=== PATIENT | female | born 1935 | race Caucasian/White ===

== ENCOUNTER → 2016-09-08 | Outpatient (CLI) | payer OTHER, MEDICAID | LOC: SBRMNEURO 20:00 | PROVIDERS: ATTEND Psychiatry & Neurology Sleep Medicine | DX: G47.39 Other sleep apnea (principal) ==

== ENCOUNTER → 2016-12-28 | Outpatient (CLI) | payer OTHER, MEDICAID | LOC: FCPNEURO 21:00 | PROVIDERS: ATTEND Psychiatry & Neurology Sleep Medicine | DX: G47.31 Primary central sleep apnea (principal); G47.33 Obstructive sleep apnea (adult) (pediatric) ==

== ENCOUNTER → 2018-01-12 | Outpatient (CLI) | payer OTHER, MEDICAID | LOC: BHFA 09:30 | PROVIDERS: ATTEND Internal Medicine Cardiovascular Disease | DX: R94.31 Abnormal electrocardiogram [ECG] [EKG] (principal); I11.9 Hypertensive heart disease without heart failure; I43 Cardiomyopathy in diseases classified elsewhere; R06.02 Shortness of breath ==

== ENCOUNTER → 2018-01-19 | Outpatient (CLI) | payer OTHER, MEDICAID | LOC: BHFA 13:30 | PROVIDERS: ATTEND Internal Medicine Cardiovascular Disease | DX: R06.02 Shortness of breath (principal); R55 Syncope and collapse | CPT/HCPCS: 78452; 93017; A9500; J2785 ==

== ENCOUNTER → 2018-02-02 | Outpatient (CLI) | payer OTHER, MEDICAID | LOC: BHFA 14:45 | PROVIDERS: ATTEND Internal Medicine Cardiovascular Disease | DX: R06.02 Shortness of breath (principal); R55 Syncope and collapse ==

== ENCOUNTER 2018-05-24 10:02 | Inpatient (IN) | payer OTHER, MEDICAID ==
[2018-05-24] MEDS ORDERED: NS 500 ML IV ONE (10:16)
[2018-05-24 10:28] LABS: PLATELET COUNT 215 10^3/uL (150-400)
--- NOTE | 2018-05-24 10:32 | EDPHY ---
H & P Time Seen by Provider: 05/24/18 10:14 HPI/ROS: CHIEF COMPLAINT: Syncope x2 HISTORY OF PRESENT ILLNESS: Patient is an 83-year-old female presents emergency department after having a syncopal episode x2. The patient lives in independent living. She was downstairs when she was noted to have a syncopal episode. She tried to stand up and had a 2nd syncopal episode. This was reviewed on video by EMS. Per report, the patient is normally quite with it and answers all questions appropriately. EMS states that she is slightly slower than normal. Her glucose was 124. The patient complained of neck pain. Patient had no other complaints. Patient does not initially recall the event until I tell her that she is here for syncope. She was unable to states that she remembers falling. She did not have any preceding symptoms. She denies any chest pain or shortness of breath. REVIEW OF SYSTEMS: 10 systems were reveiwed and are negative with the exception of the elements mentioned in the history of present illness. Past Medical/Surgical History: Includes sleep apnea, dementia, retinal detachment Past surgical history: Includes retinal surgery Social history: The patient lives in independent living Smoking Status: Never smoked Physical Exam: Vitals noted GENERAL: No acute distress, alert. HEENT: Eyes normal to inspection, normal pharynx, no signs of dehydration. No visible signs of trauma. NECK: Normal, supple. No spinal tenderness. RESPIRATORY: Clear to auscultation bilaterally, no rales, rhonchi or wheezing. CVS: Regular rate and rhythm, no rubs, murmurs, or gallops. ABDOMEN: Soft, nontender, nondistended, no organomegaly. BACK: Normal to inspection, no CVA tenderness. SKIN: Normal color, no rash, warm, dry. No pallor. EXTREMITIES: No bony tenderness. No visible signs of trauma. Full range of motion all extremities. No pedal edema, no calf tenderness, no Homans sign. NEURO/PSYCH: Alert and oriented, normal mood and affect, normal motor sensory exam. No obvious cranial nerve deficit. Constitutional: Initial Vital Signs Temperature (C) 35.8 C L 05/24/18 10:10 Heart Rate 55 L 05/24/18 10:10 Respiratory Rate 18 05/24/18 10:10 Blood Pressure 176/73 H 05/24/18 10:10 O2 Sat (%) 99 05/24/18 10:10 O2 Delivery Mode Nasal Cannula O2 (L/minute) 2 Allergies/Adverse Reactions: Sulfa (Sulfonamide Antibiotics) Allergy (Verified 02/27/14 16:10) Unknown DUST Allergy (Uncoded 02/27/14 16:10) Home Medications: Medication Instructions Recorded Herbals/Supplements -Info Only 1 ea PO AD 02/27/14 Niacin [Niacin 100 mg] 100 mg PO TID 02/27/14 Sertraline HCl [Zoloft 25mg (*)] 25 mg PO DAILY 02/27/14 Donepezil HCl [Aricept] 10 mg PO HS 06/12/14 Memantine HCl [Namenda Xr] 28 mg PO HS 06/12/14 Psyllium Seed [Metamucil] 1 tsp PO BID #0 powder 06/16/14 Ondansetron HCl [Zofran] 4 mg PO Q6 PRN #5 tablet 01/30/15 Medical Decision Making - Diagnostics Imaging Results: Imaging Impressions Cervical Spine CT 05/24/18 10:20 Impression: 1. No acute intracranial process or cervical spine fracture/subluxation. 2. Age-appropriate generalized cerebral line loss with sequela of chronic microvascular ischemic disease. Old lacunar infarct in the left basal ganglia. 3. Severe degenerative changes of the cervical spine with narrowing of the spinal canal. Findings and recommendations discussed with EZE RUIZ at 1120 hour, 05/24/2018. Head CT 05/24/18 10:20 Impression: 1. No acute intracranial process or cervical spine fracture/subluxation. 2. Age-appropriate generalized cerebral line loss with sequela of chronic microvascular ischemic disease. Old lacunar infarct in the left basal ganglia. 3. Severe degenerative changes of the cervical spine with narrowing of the spinal canal. Findings and recommendations discussed with EZE RUIZ at 1120 hour, 05/24/2018. ED Course/Re-evaluation: In the emergency department I met EMS on arrival. I took report from the lifts and cranes inspector. I discussed the plan with the patient. I answered all her questions. Sinus rhythm at 54. Bradycardic. Prolonged ID interval. Q-wave III, aVF CBC chemistry unremarkable. Troponin was negative. Head CT/C-spine CT: Please refer the dictated report. No acute disease noted Chest x-ray: Please refer the dictated report Discussed results with the patient. I answered all her questions. The C- collar was removed. I discussed the plan with the patient's family. I discussed case with the hospitalist service. She will be admitted for further observation. Differential Diagnosis: My differential includes but is not limited to syncope, dysrhythmia, ACS, acute CT, electrolyte abnormality, sugar abnormality, dehydration, vasovagal episode - Data Points Laboratory Results: Laboratory Results 05/24/18 10:15 05/24/18 10:15 05/24/18 05/24/18 05/24/18 11:04 10: 10:15 WBC RBC Hgb Hct MCV MCH MCHC RDW Plt Count MPV Neut % (Auto) Lymph % (Auto) [place] % (Auto) Eos % (Auto) Baso % (Auto) Nucleat RBC Rel Count Absolute Neuts (auto) Absolute Lymphs (auto) Absolute Monos (auto) Absolute Eos (auto) Absolute Basos (auto) Absolute Nucleated RBC Immature Gran % Immature Gran # PT 13.6 SEC SEC (12.0-15.0) INR 1.02 (0.83-1.16) APTT 27.7 SEC SEC (23.0-38.0) Sodium 136 mEq/L mEq/L (135-145) Potassium 4.3 mEq/L mEq/L (3.3-5.0) Chloride 100 mEq/L mEq/L (97-110) Carbon Dioxide 25 mEq/l mEq/l (22-31) Anion Gap 11 mEq/L mEq/L (6-14) BUN 10 mg/dL mg/dL (7-23) Creatinine 0.8 mg/dL mg/dL (0.6-1.0) Estimated GFR > 60 Glucose 134 mg/dL H mg/dL (70-100) Calcium 10.2 mg/dL mg/dL (8.5-10.4) POC Troponin I 0.01 ng/mL ng/mL (0.00-0.08) 05/24/18 05/24/18 10:15 10:15 WBC 6.47 10^3/uL 10^3/uL (3.80-9.50) RBC 5.41 10^6/uL H 10^6/uL (4.18-5.33) Hgb 16.4 g/dL H g/dL (12.6-16.3) Hct 46.9 % % (38.0-47.0) MCV 86.7 fL fL (81.5-99.8) MCH 30.3 pg pg (27.9-34.1) MCHC 35.0 g/dL g/dL (32.4-36.7) RDW 13.0 % % (11.5-15.2) Plt Count 215 10^3/uL 10^3/uL (150-400) MPV 9.8 fL fL (8.7-11.7) Neut % (Auto) 46.1 % % (39.3-74.2) Lymph % (Auto) 46.7 % H % (15.0-45.0) [place] % (Auto) 5.4 % % (4.5-13.0) Eos % (Auto) 0.9 % % (0.6-7.6) Baso % (Auto) 0.6 % % (0.3-1.7) Nucleat RBC Rel Count 0.0 % % (0.0-0.2) Absolute Neuts (auto) 2.98 10^3/uL 10^3/uL (1.70-6.50) Absolute Lymphs (auto) 3.02 10^3/uL H 10^3/uL (1.00-3.00) Absolute Monos (auto) 0.35 10^3/uL 10^3/uL (0.30-0.80) Absolute Eos (auto) 0.06 10^3/uL 10^3/uL (0.03-0.40) Absolute Basos (auto) 0.04 10^3/uL 10^3/uL (0.02-0.10) Absolute Nucleated RBC 0.00 10^3/uL 10^3/uL (0-0.01) Immature Gran % 0.3 % % (0.0-1.1) Immature Gran # 0.02 10^3/uL 10^3/uL (0.00-0.10) PT REJ INR REJ APTT REJ Sodium Potassium Chloride Carbon Dioxide Anion Gap BUN Creatinine Estimated GFR Glucose Calcium POC Troponin I Medications Given: Discontinued Medications Sodium Chloride (Ns) 500 mls @ 1,000 mls/hr IV EDNOW ONE PRN Reason: Protocol Stop: 05/24/18 10:45 Last Admin: 05/24/18 10:26 Dose: 500 mls Point of Care Test Results: Chemistry 05/24/18 10:18 POC Troponin I 0.01 ng/mL ng/mL (0.00-0.08) Departure - Departure Disposition: [facility] Inpatient Acute Clinical Impression: Syncope Qualifiers: Syncope type: unspecified Qualified Code(s): R55 - Syncope and collapse Condition: Good
[2018-05-24 11:34] LABS: INR 1.02 (0.83-1.16); PROTIME(PATIENT) 13.6 SEC (12.0-15.0)
--- NOTE | 2018-05-24 12:47 | ASMTCMCOM ---
CM Note CM Note Notes: Patient lives independently at [facility] in [place]. Her daughter, Irene is at the bedside and lives in [place]. Irene explains that it is difficult for her to get to the hospital on short notice and it would be helpful if patient could take a Medicaid cab or Via van home upon discharge. I have explained that these options are generally better for scheduling in advance for appointments, etc., but that we could certainly try for this. Irene states that she could make arrangements to take patient home (tomorrow) if needed and I assured her that CM would be following and communicate with her re D/C planning Date Signed: 05/24/2018 12:46 PM Electronically Signed By:Alley Acevedo RN
[2018-05-24] MEDS ORDERED: ONDANSETRON 4 MG/2 ML VIAL IVP PRN (14:23)
[2018-05-24] MEDS ORDERED: ONDANSETRON DISINTEGRATING 4 MG TAB PO PRN (14:23)
--- NOTE | 2018-05-24 15:10 | PDGENHP ---
History and Physical - Chief Complaint syncope x2 - History of Present Illness 83 yo female with h/o dementia and sleep apnea presents to ED via EMS after 2 syncopal episodes. She recalls feeling like she might fall down, endorses dizziness. She had witnessed syncope and when she tried to stand up, she had a 2nd episode. She denies any CP, SOB, or palpitations. No fevers, chills, N/V/D , or urinary symptoms. She takes Lisinopril for hypertension. She has a h/o dementia. EMS arrived and found her blood sugar to be 124. She was brought to the ED, where she received 500 cc's of NS. She is admitted for further evaluation. History Information - Allergies/Home Medication List Allergies/Adverse Reactions: Sulfa (Sulfonamide Antibiotics) Allergy (Verified 02/27/14 16:10) Unknown DUST Allergy (Uncoded 02/27/14 16:10) Home Medications: Herbals/Supplements -Info Only 1 ea PO AD 02/27/14 [Last Taken 01/29/15] Sertraline HCl [Zoloft 25mg (*)] 50 mg PO DAILY 02/27/14 [Last Taken 01/29/15] Donepezil HCl [Aricept] 10 mg PO HS 06/12/14 [Last Taken 01/29/15] Ascorbic Acid [Vitamin C 500 mg (*)] 500 mg PO DAILY 05/24/18 [Last Taken Unknown] Cholecalciferol Vit D3 [Vitamin D3 (*)] 1,000 units PO DAILY 05/24/18 [Last Taken Unknown] Estrogens,Conjugated [Premarin Vaginal (*)] 1 moraima VG Q3D 05/24/18 [Last Taken Unknown] Lisinopril [Zestril 5 mg (*)] 5 mg PO DAILY 05/24/18 [Last Taken Unknown] Memantine HCl [Namenda Xr] 21 mg PO DAILY 05/24/18 [Last Taken Unknown] I have personally reviewed and updated: family history, medical history, social history, surgical history - Past Medical History Additional medical history: sleep apnea. dementia. hypertension - Surgical History Additional surgical history: Retinal detachment with surgical repair - Family History Positive for: non-pertinent - Social History Smoking Status: Never smoked Alcohol Use: Occasionally Drug Use: None Additional social history: Lives in [facility] Review of Systems Review of Systems: ROS: 10pt was reviewed & negative except for what was stated in HPI & below Physical Exam Physical Exam: Temp Pulse Resp BP Pulse Ox 36.4 C 61 18 141/81 H 97 05/24/18 12:43 05/24/18 12:43 05/24/18 12:43 05/24/18 12:43 05/24/18 12:43 Constitutional: no apparent distress Eyes: PERRL Ears, Nose, Mouth, Throat: moist mucous membranes Cardiovascular: regular rate and rhythym Respiratory: no respiratory distress, clear to auscultation Gastrointestinal: normoactive bowel sounds, soft, non-tender abdomen Skin: warm Musculoskeletal: full muscle strength Neurologic: AAOx3 Psychiatric: interacting appropriately Lab Data & Imaging Review 05/24/18 10:15 05/24/18 10:15 WBC 6.47 10^3/uL (3.80-9.50) 05/24/18 10:15 RBC 5.41 10^6/uL (4.18-5.33) H 05/24/18 10:15 Hgb 16.4 g/dL (12.6-16.3) H 05/24/18 10:15 Hct 46.9 % (38.0-47.0) 05/24/18 10:15 MCV 86.7 fL (81.5-99.8) 05/24/18 10:15 MCH 30.3 pg (27.9-34.1) 05/24/18 10:15 MCHC 35.0 g/dL (32.4-36.7) 05/24/18 10:15 RDW 13.0 % (11.5-15.2) 05/24/18 10:15 Plt Count 215 10^3/uL (150-400) 05/24/18 10:15 MPV 9.8 fL (8.7-11.7) 05/24/18 10:15 Neut % (Auto) 46.1 % (39.3-74.2) 05/24/18 10:15 Lymph % (Auto) 46.7 % (15.0-45.0) H 05/24/18 10:15 [place] % (Auto) 5.4 % (4.5-13.0) 05/24/18 10:15 Eos % (Auto) 0.9 % (0.6-7.6) 05/24/18 10:15 Baso % (Auto) 0.6 % (0.3-1.7) 05/24/18 10:15 Nucleat RBC Rel Count 0.0 % (0.0-0.2) 05/24/18 10:15 Absolute Neuts (auto) 2.98 10^3/uL (1.70-6.50) 05/24/18 10:15 Absolute Lymphs (auto) 3.02 10^3/uL (1.00-3.00) H 05/24/18 10:15 Absolute Monos (auto) 0.35 10^3/uL (0.30-0.80) 05/24/18 10:15 Absolute Eos (auto) 0.06 10^3/uL (0.03-0.40) 05/24/18 10:15 Absolute Basos (auto) 0.04 10^3/uL (0.02-0.10) 05/24/18 10:15 Absolute Nucleated RBC 0.00 10^3/uL (0-0.01) 05/24/18 10:15 Immature Gran % 0.3 % (0.0-1.1) 05/24/18 10:15 Immature Gran # 0.02 10^3/uL (0.00-0.10) 05/24/18 10:15 PT 13.6 SEC (12.0-15.0) 05/24/18 11:04 INR 1.02 (0.83-1.16) 05/24/18 11:04 APTT 27.7 SEC (23.0-38.0) 05/24/18 11:04 Sodium 136 mEq/L (135-145) 05/24/18 10:15 Potassium 4.3 mEq/L (3.3-5.0) 05/24/18 10:15 Chloride 100 mEq/L (97-110) 05/24/18 10:15 Carbon Dioxide 25 mEq/l (22-31) 05/24/18 10:15 Anion Gap 11 mEq/L (6-14) 05/24/18 10:15 BUN 10 mg/dL (7-23) 05/24/18 10:15 Creatinine 0.8 mg/dL (0.6-1.0) 05/24/18 10:15 Estimated GFR > 60 05/24/18 10:15 Glucose 134 mg/dL (70-100) H 05/24/18 10:15 Calcium 10.2 mg/dL (8.5-10.4) 05/24/18 10:15 POC Troponin I 0.01 ng/mL (0.00-0.08) 05/24/18 10:18 Urine Color YELLOW 05/24/18 11:45 Urine Appearance HAZY 05/24/18 11:45 Urine pH 5.0 (5.0-7.5) 05/24/18 11:45 Ur Specific [employer] 1.012 (1.002-1.030) 05/24/18 11:45 Urine Protein NEGATIVE (NEGATIVE) 05/24/18 11:45 Urine Ketones TRACE (NEGATIVE) H 05/24/18 11:45 Urine Blood NEGATIVE (NEGATIVE) 05/24/18 11:45 Urine Nitrate NEGATIVE (NEGATIVE) 05/24/18 11:45 Urine Bilirubin NEGATIVE (NEGATIVE) 05/24/18 11:45 Urine Urobilinogen NEGATIVE EU (0.2-1.0) 05/24/18 11:45 Ur Leukocyte Esterase TRACE (NEGATIVE) H 05/24/18 11:45 Urine RBC 1-3 /hpf (0-3) 05/24/18 11:45 Urine WBC 1-3 /hpf (0-3) 05/24/18 11:45 Ur Epithelial Cells TRACE /lpf (NONE-1+) 05/24/18 11:45 Hyaline Casts 15-25 /lpf (0-1) H 05/24/18 11:45 Urine Mucus TRACE /lpf (NONE-1+) 05/24/18 11:45 Urine Glucose NEGATIVE (NEGATIVE) 05/24/18 11:45 Visualized and Interpreted Chest x-ray results: Yes Chest X-Ray results: no infiltrate Visualized and Interpreted EKG results: Yes EKG Interpretation: Positive for: normal sinsus rhythm, T waves inversion Assessment & Plan Assessment: Syncope (Acute) - Ddx includes vasovagal, orthostasis, cardiac arrhythmia, valvular heart disease, possible niacin reaction, less likely stroke. CT head neg. -admit for telemetry monitoring -trend trop -check d dimer, CTA if positive -check echo -check orthostatics and hold anti-hypertensives for now Dementia - cont home meds Hypertension - holding lisinopril for now given syncope and reported hypotension in the field FABIO - treated with nocturnal O2, didn't tolerate PAP Full code Dispo - obs
[2018-05-24] MEDS ORDERED: NS 1,000 ML IV SCH (15:30)
[2018-05-24] MEDS ORDERED: IOPAMIDOL (ISOVUE 370) 100 ML BTL IV ONE (17:04)
[2018-05-24] MEDS: DONEPEZIL HCL 5 MG TAB PO SCH (20:33)
[2018-05-25] MEDS: SERTRALINE HCL 25 MG TAB PO SCH (10:00)
[2018-05-25] MEDS: Memantine Hcl [Namenda Xr] 21 MG PO SCH (10:01)
--- NOTE | 2018-05-25 10:14 | HOSPPROG ---
Hospitalist Progress Note Assessment/Plan: Syncope (Acute) - sounds like this may have been a side effect of niacin. Per daughter, she has had syncope in the past after taking niacin. CTA neg for PE. No e/o arrhythmias on telemetry (pers reviewed/interp), echo without significant progression of valvular dz, not orthostatic. Also consider vasovagal event. -stop niacin -cont tele monitoring Possible pulmonary mets - reviewed CTA with rads, suspicion for metastatic dz. Pt is not current on mammography, no palpable breast mass, but right axillary node is palpable -IR to biopsy right axillary node, discussed with pt and daughter and they agree Distal right fibular fracture - likely related to syncope/fall. Discussed with Dr. Ovalle. -CAM walker for stability -WBAT -needs acute PT/OT Dementia - cont home meds Hypertension - holding lisinopril for now given syncope and reported hypotension in the field FABIO - treated with nocturnal O2, didn't tolerate PAP Full code Dispo - cont inpt, likely needs SNF with fibula fracture and weakness Subjective: Pt feels ok, pain controlled. No more dizziness. No CP or SOB. Eating well. Objective: Vital Signs Temp Pulse Resp BP Pulse Ox 36.7 C 70 16 101/61 97 05/25/18 08:43 05/25/18 08:43 05/25/18 08:43 05/25/18 08:43 05/25/18 04:00 05/24/18 05/25/18 05/26/18 05:59 05:59 05:59 Intake Total 1350 Output Total 875 300 Balance 475 -300 PT 13.6 SEC (12.0-15.0) 05/24/18 11:04 INR 1.02 (0.83-1.16) 05/24/18 11:04 - Physical Exam Constitutional: no apparent distress Eyes: PERRL Ears, Nose, Mouth, Throat: moist mucous membranes Cardiovascular: regular rate and rhythym Respiratory: no respiratory distress, clear to auscultation Gastrointestinal: normoactive bowel sounds, soft, non-tender abdomen Skin: warm Musculoskeletal: full muscle strength Neurologic: sensation intact bilaterally Psychiatric: interacting appropriately Lymph, Heme, Immunologic: other (+right axillary node palpable, no palpable breast masses) ICD10 Worksheet Patient Problems: Problems Problem Status Onset Syncope Acute Uterovaginal prolapse, complete Acute Vomiting Acute
--- NOTE | 2018-05-25 10:21 | ECHO ---
[email or web address] [address] [address] Main: [phone] Fax: Transthoracic Echocardiogram Name: STIVEN BARRIENTOS MR#: [id number] Study Date: 05/25/2018 Study Time: 09:15 AM Date of : 1935 Age: 83 year(s) Height: 165.1 cm (65 in.) Weight: 58.97 kg (130 lb.) BSA: 1.65 m2 Gender: Female Examination: Echo Indication: Syncope x 2 Image Quality: Technically Difficult Contrast: Requested by: Suzanna Patel BP: 101 mmHg/61 mmHg Heart Rate: Rhythm: Indication: Syncope x 2 Procedure Staff Sanitation Associate: Isabell Cheek [facility] Reading Physician: Diego Jewell MD Requesting Provider: Conclusions: Normal size left ventricle. Asymmetrical septal LV hypertrophy. Normal global systolic LV function. The ejection fraction is estimated to be 65-70 %. Normal size right ventricle. The left atrium is normal in size. Mild mitral valve regurgitation is present. Borderline posterior mitral leaflet prolapse.. The aortic valve is tri-leaflet. Mild aortic valve regurgitation is present. The tricuspid valve is normal in appearance and function. Mild tricuspid regurgitation is present. Trivial pulmonic valve regurgitation. The aorta is normal. No changes in comparison to prior echocardiogram from January. There is some degree of asymmetric septal hypertrophy noted in both studies. Measurements: Chambers Valvular Assessment AV/MV Valvular Assessment TV/PV Normal Normal Normal Name Value Range Name Value Range Name Value Range Ao Jennifer (MM): 3.9 cm (2.2 cm-3.7 AV Vmax: 1.41 m/s (1 m/s-1.7 TR Vmax: 2.25 mm/s ( - ) cm) m/s) TR PGmax: 20 mmHg ( - ) IVSd (2D): 0.8 cm (0.6 cm-1.1 AV meanP mmHg ( - ) syst. PAP: 25 mmHg ( - ) cm) MV E Vmax: 0.62 m/s ( - ) LVDd (2D): 4.0 cm (3.9 cm-5.3 MV A Vmax: 0.88 m/s ( - ) cm) MV E/A: 0.70 ( - ) LVDs (2D): 2.6 cm (2.1 cm-4 cm) LVPWd (2D): 0.8 cm ( - ) Patient: STIVEN BARRIENTOS Study Date: 05/25/2018 Page 1 of 2 09:15 AM LVEF (2D): 68 (>=54 %) EF Range: 65-70 % Continued Measurements: Chambers Valvular Assessment AV/MV Valvular Assessment TV/PV Name Value Name Value Name Value LADs Lon.2 cm MV E' Septal: 0.05 m/s CVP (est.): 5 mmHg LA Area: 16.4 cm2 MV E/E' Septal: 13.20 LA Volume: 40 ml MV E/E' Lateral: 11.50 LA Volume Index: 24.2 ml/m2 Additional Vessels Name Value Ao Ascendin.4 cm Findings: Left Ventricle: Normal size left ventricle. Asymmetrical septal LV hypertrophy. Normal global systolic LV function. The ejection fraction is estimated to be 65-70 %. No regional wall motion abnormality. Normal diastolic LV function. LV basal anteroseptal thickening without an LVOT obstruction.. Right Ventricle: Normal size right ventricle. Left Atrium: The left atrium is normal in size. Right Atrium: The right atrium is normal in size. Mitral Valve: Mild mitral valve regurgitation is present. Borderline posterior mitral leaflet prolapse.. Aortic Valve: The aortic valve is normal in appearance and function. The aortic valve is tri-leaflet. Mild aortic valve regurgitation is present. Tricuspid Valve: The tricuspid valve is normal in appearance and function. Mild tricuspid regurgitation is present. Pulmonic Valve: The pulmonic valve is normal in appearance and function. Trivial pulmonic valve regurgitation. Aorta: The aorta is normal. Pericardium: No pericardial effusion. There is pericardial fat. Exam Comments: Previous echo 02/07.. (No Signature Object) Patient: STIVEN BARRIENTOS Study Date: 05/25/2018 Page 2 of 2 09:15 AM [id number]
--- NOTE | 2018-05-25 13:57 | PDMN ---
Medical Necessity Medical necessity: Changed to IP as of 05/25/2018 per and MCG [id number]; los > 2 mn for ongoing management and tx of syncope resulting in fall with fibular fracture requiring surgical consult, additionally possible pulmonary metastatic disease requiring IR biopsy, therapies. Comorbid advanced age
--- NOTE | 2018-05-25 15:34 | CPEKG ---
Test Reason : OPEN Blood Pressure : / mmHG Vent. Rate : 054 BPM Atrial Rate : 055 BPM P-R Int : 272 ms QRS Dur : 091 ms QT Int : 422 ms P-R-T Axes : 044 -37 -18 degrees QTc Int : 400 ms Sinus rhythm Prolonged MS interval Inferior infarct, old Confirmed by Suma Greene ([id number]) on 05/25/2018 3:33:47 PM Referred By: Confirmed By:Suma Greene
--- NOTE | 2018-05-25 16:51 | ASMTCMCOM ---
CM Note CM Note Notes: Pts case discussed in tx rounds. PT is recommending SNF. CM met w/ pt for dispo planning. CM provided pt w/ senior blue book. Pt wants more time to think about SNF. Pt has a broken ankle. CM spoke to pts daughter Irene regarding dispo planning. Irene would like referrals made to [facility] and [facility]. Referrals sent. CM to follow. Plan: SNF Date Signed: 05/25/2018 04:50 PM Electronically Signed By:ALHAJI Mckeon
[2018-05-25] MEDS ORDERED: LIDOCAINE 1% 300 MG/30 ML SDV ONE (17:24)
[2018-05-25] MEDS: DONEPEZIL HCL 5 MG TAB PO SCH (20:22)
[2018-05-26] MEDS: Memantine Hcl [Namenda Xr] 21 MG PO SCH (09:32)
[2018-05-26] MEDS: SERTRALINE HCL 25 MG TAB PO SCH (09:32)
--- NOTE | 2018-05-26 10:19 | HOSPPROG ---
Hospitalist Progress Note Assessment/Plan: Syncope (Acute) - sounds like this may have been a side effect of niacin. Per daughter, she has had syncope in the past after taking niacin. CTA neg for PE. No e/o arrhythmias on telemetry (pers reviewed/interp), echo without significant progression of valvular dz, not orthostatic. Also consider vasovagal event. -stop niacin -cont tele monitoring Possible pulmonary mets - reviewed CTA with rads, suspicion for metastatic dz. Pt is not current on mammography, no palpable breast mass, but right axillary node is palpable -s/p biopsy of right axillary node, plan for f/u with [facility] for results / plan -discussed with Dr. Thompson, will obtain CT abd/pelvis to eval for primary source Distal right fibular fracture - likely related to syncope/fall. Discussed with Dr. Ovalle. -CAM walker for stability -WBAT -needs acute PT/OT, ultimately SNF Dementia - cont home meds Hypertension - holding lisinopril for now given syncope and reported hypotension in the field FABIO - treated with nocturnal O2, didn't tolerate PAP Full code Dispo - cont inpt, planning for SNF Subjective: Pt feels ok. She gets overwhelmed easily and has poor memory. Denies pain. No CP or SOB. Objective: Vital Signs Temp Pulse Resp BP Pulse Ox 36.9 C 60 14 142/64 H 94 05/26/18 08:00 05/26/18 08:00 05/26/18 08:00 05/26/18 08:00 05/26/18 08:00 05/25/18 05/26/18 05/27/18 05:59 05:59 04:59 Intake Total 880 Output Total 300 400 Balance 580 -400 PT 13.6 SEC (12.0-15.0) 05/24/18 11:04 INR 1.02 (0.83-1.16) 05/24/18 11:04 - Physical Exam Constitutional: no apparent distress Eyes: PERRL Ears, Nose, Mouth, Throat: moist mucous membranes Cardiovascular: regular rate and rhythym Respiratory: no respiratory distress, clear to auscultation Gastrointestinal: normoactive bowel sounds, soft, non-tender abdomen Skin: warm Musculoskeletal: full muscle strength Neurologic: AAOx3 Psychiatric: interacting appropriately, poor memory ICD10 Worksheet Patient Problems: Problems Problem Status Onset Syncope Acute Uterovaginal prolapse, complete Acute Vomiting Acute
[2018-05-26] MEDS ORDERED: IOPAMIDOL (ISOVUE-300) 100 ML BTL ONE (11:31)
[2018-05-26] MEDS: ATORVASTATIN CALCIUM 40 MG TAB PO SCH (12:15)
--- NOTE | 2018-05-26 18:55 | ASMTCMCOM ---
CM Note CM Note Notes: Patient lives independently at [facility] in [place]. Her daughter, Irene lives in [place]. Pt admitted for syncope and fractured ankle in the setting of demention, and possible pulmonary mets. PT recommending SNF. Pt has been accepted by [facility] and pt's dtr prefers this facility. Pt also agreeable. CM to follow. D/C Plan: [facility] Date Signed: 05/26/2018 06:54 PM Electronically Signed By:Marta Koehler
[2018-05-26] MEDS: ACETAMINOPHEN 325 MG TAB PO PRN (20:19)
[2018-05-26] MEDS: DONEPEZIL HCL 5 MG TAB PO SCH (20:20)
[2018-05-27] MEDS: ACETAMINOPHEN 325 MG TAB PO PRN ×2 (08:40→20:59)
[2018-05-27] MEDS: Memantine Hcl [Namenda Xr] 21 MG PO SCH (09:34)
[2018-05-27] MEDS: SERTRALINE HCL 25 MG TAB PO SCH (09:34)
[2018-05-27] MEDS: ATORVASTATIN CALCIUM 40 MG TAB PO SCH (09:34)
[2018-05-27] MEDS: MULTIVITAMINS 1 EACH TAB PO SCH (09:34)
--- NOTE | 2018-05-27 10:20 | GCON ---
INPATIENT ONCOLOGY CONSULTATION DATE OF CONSULTATION: 05/27/2018 REFERRING PHYSICIAN: Suzanna Patel MD REASON FOR CONSULTATION: New lung nodules and right axillary nodule. PRESENT ILLNESS: The patient is an 83-year-old woman who presented to the hospital few days ago with a syncopal episode. She says that for a number weeks she had been feeling "spacey" and felt tired. She has lived in an assisted living facility for the past 15 years and has some dementia. She denie s other symptoms such as cough, fever, or unexplained weight loss. On admission, she had a positive D-dimer and so a CT angiogram was ordered. This showed no pulmonary embolism but did show multiple new noncalcified lung nodules. The largest 1 appears to be 1 x 0.7 c m in the left lower lobe abutting the pleura. There is also a 4.3 x 2.6 right axillary nodule. She had a biopsy performed of that nodule, the pathology for which is pending. Yesterday, she had a CT o f the abdomen and pelvis, which was unrevealing. Her CBC and CMP are essentially normal with the exc eption of a slightly elevated lymphocyte count of 3000. PAST MEDICAL HISTORY: Early dementia. CURRENT MEDICATIONS: Include Lipitor, Aricept, and Zoloft. ALLERGIES: Sulfa. FAMILY HISTORY: No family history of cancer. SOCIAL HISTORY: She does not smoke cigarettes or drink alcohol. She lives in assisted living. She prepares her own meals, but does get Meals on Wheels 3 times per week. REVIEW OF SYSTEMS: Pertinent positives in HPI. A 14-point review of systems is negative. EXAMINATION: VITAL SIGNS: Her blood pressure is 131/64, heart rate 50, oxygen saturation 94% on room air. GENERAL: She is a somewhat frail, elderly woman in no acute distress. HEENT: Sclerae anicter ic. Oropharynx is clear. NECK: Supple without lymphadenopathy. LUNGS: Clear to auscultation bilat erally. CARDIAC: Regular rate and rhythm. No murmurs, gallops, rubs. ABDOMEN: Normoactive bowel s ounds. Nontender, nondistended. EXTREMITIES: Without edema. SKIN: No petechiae, purpura. LYMPH NODES: There was a very soft movable lymph node palpable in the right axilla. No other enlarged nod es were noted. LABORATORY DATA: White count 6.47 with 3000 lymphocytes. Hemoglobin 16.4, platelets of 215. Basic m etabolic panel was normal. CEA 2.3. CA-19-9 and CA 27.29 are pending. IMPRESSION: This is an 83-year-old woman presented with syncope. She was incidentally noted to have some very small lung nodules as well as an enlarged right axillary node. The node has been biopsied . It is quite soft and seems unlikely to represent a cell tumor. One consideration would be an indo lent lymphoma such as small lymphocytic lymphoma. It may also be a benign lymph node or a lipoma. Sh e had a head CT on admission, which was negative for metastasis. Certainly, an MRI could be performe d for evaluation. I would likely defer that until we have some results from the pathology. RECOMMENDATIONS: 1. Await pathology results. 2. Further followup to be based on the results of the biopsy. If the biopsy is negative, it would b e reasonable to send a peripheral blood for flow cytometry to look for a B-cell clone. 3. At this juncture, it is not clear to me that her syncope was related to an underlying malignancy. Given her bradycardia, that may be a more likely explanation. Thank you for the consultation. We will follow up with the patient when the results of the biopsy ar e available. /[id number]/MODL
--- NOTE | 2018-05-27 18:48 | HOSPPROG ---
Hospitalist Progress Note Assessment/Plan: Syncope - may have been a side effect of niacin. Per daughter, she has had syncope in the past after taking niacin. Also consider vasovagal event. CTA neg for PE. Mild bradycardia in the 50's without AV gosia blockers, no pauses or e/o arrhythmias on telemetry (pers reviewed/interp), echo without significant progression of valvular dz, not orthostatic. -stop niacin -aricept can cause syncope and/or bradycardia, stop this -consider outpt cardiac event monitor Pulmonary nodules / enlarged axillary lymph node - reviewed CTA with rads, suspicion for metastatic dz. Pt is not current on mammography, no palpable breast mass, but right axillary node is palpable -s/p biopsy of right axillary node, plan for f/u with [facility] for results / plan -discussed with Dr. Thompson, CT abd/pelvis to eval for primary source Distal right fibular fracture - likely result of syncope/fall. Discussed with Dr. Ovalle. -CAM walker for stability -WBAT -needs acute PT/OT, ultimately SNF Dementia - cont namenda, stopping aricept as above Hypertension - holding lisinopril for now given syncope and reported hypotension in the field FABIO - treated with nocturnal O2, didn't tolerate PAP Full code Dispo - cont inpt, planning for SNF d/c in am Subjective: Pt feels well. No complaints. Objective: Vital Signs Temp Pulse Resp BP Pulse Ox 36.3 C 54 L 16 131/74 H 93 05/27/18 14:50 05/27/18 15:02 05/27/18 14:50 05/27/18 14:50 05/27/18 15:02 05/26/18 05/27/18 05/28/18 06:59 05:59 05:59 Intake Total Output Total 400 Balance -400 PT 13.6 SEC (12.0-15.0) 05/24/18 11:04 INR 1.02 (0.83-1.16) 05/24/18 11:04 - Physical Exam Constitutional: no apparent distress Eyes: PERRL Ears, Nose, Mouth, Throat: moist mucous membranes Cardiovascular: regular rate and rhythym Respiratory: no respiratory distress, clear to auscultation Gastrointestinal: normoactive bowel sounds, soft, non-tender abdomen Skin: warm Musculoskeletal: full muscle strength Neurologic: AAOx3 Psychiatric: interacting appropriately, poor memory ICD10 Worksheet Patient Problems: Problems Problem Status Onset Syncope Acute Uterovaginal prolapse, complete Acute Vomiting Acute
[2018-05-28] MEDS: ACETAMINOPHEN 325 MG TAB PO PRN (07:31)
[2018-05-28] MEDS: SERTRALINE HCL 25 MG TAB PO SCH (09:28)
[2018-05-28] MEDS: MULTIVITAMINS 1 EACH TAB PO SCH (09:28)
[2018-05-28] MEDS: ATORVASTATIN CALCIUM 40 MG TAB PO SCH (09:28)
[2018-05-28] MEDS: Memantine Hcl [Namenda Xr] 21 MG PO SCH (10:56)
--- NOTE | 2018-05-28 14:19 | ASMTCMCOM ---
CM Note CM Note Notes: Patient plan of care reviewed in rounds. Plan remains for the patient to go to [facility] when medically cleared for discharge. Plan: To [facility] Date Signed: 05/28/2018 01:57 PM Electronically Signed By:Stephanie Kulkarni RN
--- NOTE | 2018-05-28 16:37 | HOSPPROG ---
Hospitalist Progress Note Assessment/Plan: 83 yo F w axillary mass, syncope Syncope - may have been a side effect of niacin. Per daughter, she has had syncope in the past after taking niacin. Also consider vasovagal event. CTA neg for PE. Mild bradycardia in the 50's without AV gosia blockers, no pauses or e/o arrhythmias on telemetry (pers reviewed/interp), echo without significant progression of valvular dz, not orthostatic. -stop niacin -aricept can cause syncope and/or bradycardia, stop this -consider outpt cardiac event monitor Pulmonary nodules / enlarged axillary lymph node - reviewed CTA with rads, suspicion for metastatic dz. Pt is not current on mammography, no palpable breast mass, but right axillary node is palpable -s/p biopsy of right axillary node, plan for f/u with [facility] for results / plan -discussed with Dr. Thompson, CT abd/pelvis to eval for primary source path pending Distal right fibular fracture - likely result of syncope/fall. Discussed with Dr. Ovalle. -CAM walker for stability -WBAT -needs acute PT/OT, ultimately SNF Dementia - cont namenda, stopping aricept as above Hypertension - holding lisinopril for now given syncope and reported hypotension in the field FABIO - treated with nocturnal O2, didn't tolerate PAP Full code Dispo - cont inpt, planning for SNF d/c in am Subjective: pt/ot rec snf Objective: Vital Signs Temp Pulse Resp BP Pulse Ox 36.6 C 63 16 143/76 H 94 05/28/18 15:16 05/28/18 15:16 05/28/18 15:16 05/28/18 15:16 05/28/18 15:16 05/27/18 05/28/18 05/29/18 05:59 05:59 05:59 Intake Total 500 Output Total 400 Balance 100 PT 13.6 SEC (12.0-15.0) 05/24/18 11:04 INR 1.02 (0.83-1.16) 05/24/18 11:04 - Physical Exam Constitutional: no apparent distress, appears nourished Eyes: PERRL, anicteric sclera Ears, Nose, Mouth, Throat: moist mucous membranes, hearing normal Cardiovascular: regular rate and rhythym, no murmur, rub, or gallop Respiratory: no respiratory distress, no rales or rhonchi Gastrointestinal: normoactive bowel sounds, soft, non-tender abdomen, no palpable masses Genitourinary: no bladder fullness, No angulo in urethra Skin: warm, normal color Musculoskeletal: full muscle strength Neurologic: AAOx3 ICD10 Worksheet Patient Problems: Problems Problem Status Onset Syncope Acute Uterovaginal prolapse, complete Acute Vomiting Acute
[2018-05-29] MEDS: ATORVASTATIN CALCIUM 40 MG TAB PO SCH (08:47)
[2018-05-29] MEDS: MULTIVITAMINS 1 EACH TAB PO SCH (08:47)
[2018-05-29] MEDS: SERTRALINE HCL 25 MG TAB PO SCH (08:47)
[2018-05-29] MEDS: Memantine Hcl [Namenda Xr] 21 MG PO SCH (08:48)
--- NOTE | 2018-05-29 11:40 | SOAPPROG ---
[facility] Progress Note Assessment/Plan: Assessment: 1. Axillary adenopathy/pulmonary nodules-s/p biopsy. Path pending. 2. Syncope. 3. Distal right fibular fracture. Plan: 1. Follow up path. Sven something preliminary later today. 2. Ultimately SNF with outpatient follow up with Dr. Thompson. 05/29/18 11:39 05/29/18 11:40 Subjective: right ankle hurts. Otherwise, no new complaints Objective: Vital Signs Temp Pulse Resp BP Pulse Ox 36.6 C 59 L 14 129/68 H 94 05/29/18 07:51 05/29/18 07:51 05/29/18 07:51 05/29/18 07:51 05/29/18 07:51 05/28/18 05/29/18 05/30/18 05:59 05:59 05:59 Intake Total 500 800 Output Total 400 400 Balance 100 400 PT 13.6 SEC (12.0-15.0) 05/24/18 11:04 INR 1.02 (0.83-1.16) 05/24/18 11:04 Physical Exam - Physical Exam General Appearance: no apparent distress Respiratory: lungs clear Abdomen: soft Extremities: other (right ankle eccymotic.) ICD10 Worksheet Patient Problems: Problems Problem Status Onset Syncope Acute Uterovaginal prolapse, complete Acute Vomiting Acute
[2018-05-29] MEDS: ACETAMINOPHEN 325 MG TAB PO PRN ×3 (13:00→18:27)
--- NOTE | 2018-05-29 13:36 | HOSPPROG ---
Hospitalist Progress Note Assessment/Plan: 83 yo F with hx of dementia, sherman, pw syncopal episode and found to have pulmonary nodules concerning for metastatic disease # syncope: without recurrence and w/u negative including tele monitoring, echocardiogram and CTA. Was on aricept and niacin which both could have been cause of syncope and were discontinued # pulmonary nodules: multiple nodules noted on personal review of CTA from admission, has had biopsy and the results are pending currently, reviewed with oncology, likely will have result tonight or in am. Treatment plan to be determined following results of that. # distal right fibular fx: nondisplaced, patient reviewed by [place] of orthopedics who has stated this is a non operative injury, patient to be WBAT, pt/ot involved, will dc to snf, occurred during fall from syncope # dementia: at baseline, on namenda # htn: on lisinopril at home which has been held here given syncope on arrival, in general BP has been appropriate for her age with only a couple elevated readings, could consider resuming at 2.5mg if BP becomes more persistently elevated # sherman: on nocturnal o2, does not tolerate cpap # IP status, will dc to [facility] likely 05/30. Patient new to my care. Old records reviewed and summarized as above. Care plan reviewed with Dr. Guerrero. Subjective: no significant overnight events, patient reports feeling fatigued today and generally unwell, does not feel ready to dc to snf today Objective: Vital Signs Temp Pulse Resp BP Pulse Ox 36.6 C 59 L 14 129/68 H 94 05/29/18 07:51 05/29/18 07:51 05/29/18 07:51 05/29/18 07:51 05/29/18 07:51 05/28/18 05/29/18 05/30/18 05:59 05:59 05:59 Intake Total 500 800 Output Total 400 400 Balance 100 400 PT 13.6 SEC (12.0-15.0) 05/24/18 11:04 INR 1.02 (0.83-1.16) 05/24/18 11:04 chronically ill appearing anicteric op clear rrr no mrg cta b soft nt nd rle with ecchymosis/edema to ankle no cce oriented x 2, appropriate ICD10 Worksheet Patient Problems: Problems Problem Status Onset Uterovaginal prolapse, complete Acute Vomiting Acute Syncope Acute
--- NOTE | 2018-05-29 15:50 | ASMTCMCOM ---
CM Note CM Note Notes: Patient plan of care reviewed. She tells the oncologist she is unwell today. Pathology pending on lung nodule. Discussed with daughter Irene. CM to follow for needs. Accepted to [facility] Plan: Dc to SNF when medically stable. Date Signed: 05/29/2018 03:50 PM Electronically Signed By:Stephanie Kulkarni RN
[2018-05-30 04:37] LABS: PLATELET COUNT 183 10^3/uL (150-400)
[2018-05-30] MEDS: ATORVASTATIN CALCIUM 40 MG TAB PO SCH (08:47)
[2018-05-30] MEDS: ACETAMINOPHEN 325 MG TAB PO PRN ×3 (09:07→22:00)
[2018-05-30] MEDS: MULTIVITAMINS 1 EACH TAB PO SCH (09:07)
[2018-05-30] MEDS: SERTRALINE HCL 25 MG TAB PO SCH (09:07)
[2018-05-30] MEDS: Memantine Hcl [Namenda Xr] 21 MG PO SCH (09:10)
--- NOTE | 2018-05-30 14:34 | SOAPPROG ---
SOAP Progress Note Assessment/Plan: Assessment: 1. 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 + lung nodules. 2. Early dementia 3. Syncope Discussed w/ pt. Disease is incurable but can be treated with immunotherapy, or BRAF inhibition if the tumor is BRAF mutated. She is potentially interested in treatment Plan: - brain MRI for staging - PET-CT as outpatient to complete staging - f/u with me in clinic in 1-2 weeks to discuss staging studies and treatment options 30 min spent w/ pt and in coordination of care. 05/30/18 14:29 Subjective: feels a bit stronger. Objective: exam: NAD 8mm mole on R scapula Vital Signs Temp Pulse Resp BP Pulse Ox 36.5 C 54 L 14 141/76 H 95 05/30/18 07:27 05/30/18 07:27 05/30/18 07:27 05/30/18 07:27 05/30/18 07:27 Laboratory Results 05/30/18 04:13 05/30/18 04:13 05/29/18 05/30/18 05/31/18 05:59 05:59 05:59 Intake Total 800 300 Output Total 400 Balance 400 300 PT 13.6 SEC (12.0-15.0) 05/24/18 11:04 INR 1.02 (0.83-1.16) 05/24/18 11:04 ICD10 Worksheet Patient Problems: Problems Problem Status Onset Syncope Acute Uterovaginal prolapse, complete Acute Vomiting Acute
--- NOTE | 2018-05-30 15:50 | HOSPPROG ---
Hospitalist Progress Note Assessment/Plan: 83 yo F w axillary mass, syncope Syncope - may have been a side effect of niacin. Per daughter, she has had syncope in the past after taking niacin. Also consider vasovagal event. CTA neg for PE. Mild bradycardia in the 50's without AV gosia blockers, no pauses or e/o arrhythmias on telemetry (pers reviewed/interp), echo without significant progression of valvular dz, not orthostatic. -stop niacin -aricept can cause syncope and/or bradycardia, stop this -consider outpt cardiac event monitor Pulmonary nodules / enlarged axillary lymph node - melanoma mri brain today candidate for immune therapy Distal right fibular fracture - likely result of syncope/fall. Discussed with Dr. Ovalle. -CAM walker for stability -WBAT -needs acute PT/OT, ultimately SNF Dementia - cont namenda, stopping aricept as above Hypertension - holding lisinopril for now given syncope and reported hypotension in the field FABIO - treated with nocturnal O2, didn't tolerate PAP Full code Dispo - cont inpt, planning for SNF d/c in am Subjective: bx + for melanoma. case d/w dr crandall- he informed patient Objective: Vital Signs Temp Pulse Resp BP Pulse Ox 36.4 C 60 14 129/74 H 95 05/30/18 15:17 05/30/18 15:17 05/30/18 15:17 05/30/18 15:17 05/30/18 15:17 Laboratory Results 05/30/18 04:13 05/30/18 04:13 05/29/18 05/30/18 05/31/18 05:59 05:59 05:59 Intake Total 800 300 Output Total 400 Balance 400 300 PT 13.6 SEC (12.0-15.0) 05/24/18 11:04 INR 1.02 (0.83-1.16) 05/24/18 11:04 - Physical Exam Constitutional: no apparent distress, appears nourished Eyes: PERRL, anicteric sclera Ears, Nose, Mouth, Throat: moist mucous membranes, hearing normal Cardiovascular: regular rate and rhythym, no murmur, rub, or gallop Respiratory: no respiratory distress, no rales or rhonchi Gastrointestinal: normoactive bowel sounds, soft, non-tender abdomen Genitourinary: no bladder fullness, No angulo in urethra Skin: warm, normal color Musculoskeletal: no muscle tenderness ICD10 Worksheet Patient Problems: Problems Problem Status Onset Syncope Acute Uterovaginal prolapse, complete Acute Vomiting Acute
[2018-05-30] MEDS ORDERED: GADOBUTROL 10 ML VIAL IVP ONE (18:54)
[2018-05-31] MEDS: ACETAMINOPHEN 325 MG TAB PO PRN ×2 (06:03→11:23)
[2018-05-31] MEDS: MULTIVITAMINS 1 EACH TAB PO SCH (11:23)
[2018-05-31] MEDS: ATORVASTATIN CALCIUM 40 MG TAB PO SCH (11:25)
[2018-05-31] MEDS: SERTRALINE HCL 25 MG TAB PO SCH (11:25)
[2018-05-31] MEDS: Memantine Hcl [Namenda Xr] 21 MG PO SCH (11:27)
--- NOTE | 2018-05-31 15:25 | HOSPPROG ---
Hospitalist Progress Note Assessment/Plan: 83 yo F w axillary mass, syncope Syncope - may have been a side effect of niacin. Per daughter, she has had syncope in the past after taking niacin. Also consider vasovagal event. CTA neg for PE. Mild bradycardia in the 50's without AV gosia blockers, no pauses or e/o arrhythmias on telemetry (pers reviewed/interp), echo without significant progression of valvular dz, not orthostatic. -stop niacin -aricept can cause syncope and/or bradycardia, stop this -consider outpt cardiac event monitor Pulmonary nodules / enlarged axillary lymph node - melanoma mri brain today candidate for immune therapy Distal right fibular fracture - likely result of syncope/fall. Discussed with Dr. Ovalle. -CAM walker for stability -WBAT -needs acute PT/OT, ultimately SNF Dementia - cont namenda, stopping aricept as above Hypertension - holding lisinopril for now given syncope and reported hypotension in the field FABIO - treated with nocturnal O2, didn't tolerate PAP Full code Dispo - to snf tioday > 30 minutes Subjective: MRI w no intracranial masses Objective: Vital Signs Temp Pulse Resp BP Pulse Ox 36.5 C 55 L 16 129/88 H 93 05/31/18 12:20 05/31/18 12:20 05/31/18 12:20 05/31/18 12:20 05/31/18 12:20 Laboratory Results 05/30/18 04:13 05/30/18 04:13 05/30/18 05/31/18 06/01/18 05:59 05:59 05:59 Intake Total 300 1540 Balance 300 1540 PT 13.6 SEC (12.0-15.0) 05/24/18 11:04 INR 1.02 (0.83-1.16) 05/24/18 11:04 - Physical Exam Constitutional: no apparent distress, appears nourished Eyes: PERRL, anicteric sclera Ears, Nose, Mouth, Throat: moist mucous membranes, hearing normal Cardiovascular: regular rate and rhythym, no murmur, rub, or gallop Respiratory: no respiratory distress, no rales or rhonchi Gastrointestinal: normoactive bowel sounds, soft, non-tender abdomen Genitourinary: no bladder fullness, No angulo in urethra Skin: warm, normal color Musculoskeletal: full muscle strength Neurologic: AAOx3 ICD10 Worksheet Patient Problems: Problems Problem Status Onset Syncope Acute Uterovaginal prolapse, complete Acute Vomiting Acute
--- NOTE | 2018-05-31 16:09 | PDIAF ---
- Diagnosis Diagnosis: melanoma Code Status: Full Code - Medication Management Discharge Medications: electronically signed and located in the Home Medication List. - Orders Services needed: Registered Nurse, Certified Medicinal Chemist, Master Licensed Practical Nurse Instructor , Physical Therapy, Occupational Therapy Isolation Type: None - Follow Up Care Current Providers and Referrals: Quang hTompson MD [Medical Doctor] - Patient,NotPresent [Unknown] - As per Instructions
--- NOTE | 2018-05-31 16:17 | ASMTDCNOTE ---
Case Management Discharge Discharge Order Complete? Answers: Yes Patient to Obtain Answers: Other Notes: [facility] Transportation Arranged Answers: Other Notes: Wheelchair van Transport will Pick (Date 05/31/2018 05:00 PM & Time) Faxed Final Orders Answers: Yes Agency/Facility Transfer Answers: Yes Report Printed & Faxed to Receiving Agency Family Notified Answers: Yes Notes: called dtr Irene Discharge Comments Notes: Pt to discharge to [facility] in [place]. Dtr called. RN to call report to [facility]. No further CM needs noted at this time. Date Signed: 05/31/2018 04:16 PM Electronically Signed By:Marta Koehler
[2018-05-31 16:18] VITALS: BP 136/72
--- NOTE | 2018-05-31 16:19 | ASMTLACE ---
LACE Length of stay for Answers: 4-6 days current admission Acuity / Level of Answers: Yes Care: Did the patient have an inpatient admission? Comorbidities - select Answers: Any tumor (including all that apply lymphoma or leukemia) Dementia # of Emergency department Answers: 1-2 visits in the last 6 months Score: 13 Date Signed: 05/31/2018 04:17 PM Electronically Signed By:Marta Koehler
--- NOTE | 2018-05-31 16:31 | ASDISCHSUM ---
Discharge Information Plan Status:SNF Medically Cleared to Leave:05/30/2018 Discharge Date:05/30/2018 CM D/C Disposition:Custodial Facility ADT D/C Disposition: Projected Discharge Date:05/31/2018 11:00 AM Transportation at D/C:Wheelchair Van Discharge Delay Reason: Follow-Up Date:05/31/2018 11:00 AM Discharge Slot: Final Diagnosis:syncope, melanoma, ankle fracture Placement Information Referral Type:*Half-Way/SNF Referral ID:[id number] Provider Name:Rachael Osorio Address 1:[address] Phone Number: Address 2: Fax Number: City:[place] Selection Factors: State:[place] Patient Contact Information Contact Name:MARK Relationship:Daughter Address: City:[place] Phone: State/Zip Code:[place] [address] Email: Financial Information Financial Class:Medicare Primary Plan Desc:MEDICARE INPATIENT Primary Plan Number:[id number] Secondary Plan Desc:MED[place] Secondary Plan Number:[id number] Assessment Information LACE LACE Length of stay for Answers: 4-6 days current admission Acuity / Level of Answers: Yes Care: Did the patient have an inpatient admission? Comorbidities - select Answers: Any tumor (including all that apply lymphoma or leukemia) Dementia # of Emergency department Answers: 1-2 visits in the last 6 months Score: 13 Date Signed: 05/31/2018 04:17 PM Electronically Signed By:Marta Koehler [facility] CM Progress Note CM Note CM Note Notes: Patient lives independently at [facility] in [place]. Her daughter, Irene is at the bedside and lives in [place]. Irene explains that it is difficult for her to get to the hospital on short notice and it would be helpful if patient could take a Medicaid cab or Via van home upon discharge. I have explained that these options are generally better for scheduling in advance for appointments, etc., but that we could certainly try for this. Irene states that she could make arrangements to take patient home (tomorrow) if needed and I assured her that CM would be following and communicate with her re D/C planning Date Signed: 05/24/2018 12:46 PM Electronically Signed By:Alley Acevedo RN [facility] Progress Note CM Note CM Note Notes: Pts case discussed in tx rounds. PT is recommending SNF. CM met w/ pt for dispo planning. CM provided pt w/ senior blue book. Pt wants more time to think about SNF. Pt has a broken ankle. CM spoke to pts daughter Irene regarding dispo planning. Irene would like referrals made to [facility] and [facility]. Referrals sent. CM to follow. Plan: SNF Date Signed: 05/25/2018 04:50 PM Electronically Signed By:ALHAJI Mckeon [facility] Progress Note CM Note CM Note Notes: Patient lives independently at [facility]. Her daughter, Irene lives in [place]. Pt admitted for syncope and fractured ankle in the setting of demention, and possible pulmonary mets. PT recommending SNF. Pt has been accepted by [facility] and pt's dtr prefers this facility. Pt also agreeable. CM to follow. D/C Plan: [facility] SN[facility] Rehab Date Signed: 05/26/2018 06:54 PM Electronically Signed By:Marta Koehler [facility] Progress Note CM Note CM Note Notes: Patient plan of care reviewed in rounds. Plan remains for the patient to go to [facility] when medically cleared for discharge. Plan: To [facility] Date Signed: 05/28/2018 01:57 PM Electronically Signed By:Stephanie Kulkarni RN [facility] Progress Note CM Note CM Note Notes: Patient plan of care reviewed. She tells the oncologist she is unwell today. Pathology pending on lung nodule. Discussed with daughter Irene. CM to follow for needs. Accepted to [facility] Plan: Dc to SNF when medically stable. Date Signed: 05/29/2018 03:50 PM Electronically Signed By:Stephanie Kulkarni RN Case Management Discharge Plan Note Case Management Discharge Discharge Order Complete? Answers: Yes Patient to Obtain Answers: Other Notes: [facility] Transportation Arranged Answers: Other Notes: Wheelchair van Transport will Pick (Date 05/31/2018 05:00 PM & Time) Faxed Final Orders Answers: Yes Agency/Facility Transfer Answers: Yes Report Printed & Faxed to Receiving Agency Family Notified Answers: Yes Notes: called dtr Irene Discharge Comments Notes: Pt to discharge to [facility] in [place]. Dtr called. RN to call report to [facility]. No further CM needs noted at this time. Date Signed: 05/31/2018 04:16 PM Electronically Signed By:Marta Koehler Intervention Information Intervention Type:*IM-Signed Date of Service:05/31/2018 03:50 PM Patient Type:Inpatient Staff Member:Arminda Richards Hours: Discipline: Severity: Comment:
--- NOTE | 2018-05-31 18:49 | GDS ---
DISCHARGE DIAGNOSES: 1. Fall with fibular fracture. 2. Metastatic melanoma. 3. Syncope. Please see admission history and physical by Dr. Suzanna Patel. The patient presented on the afternoon of the with syncope and a fall. Syncope workup was negati ve. She attributes perhaps to Aricept or niacin which apparently could be associated with syncope. Echocardiogram, CTA of the chest were negative for significant abnormalities. She did have an axilla ry mass. This was biopsied and found to be consistent with melanoma when path returned. She had sub sequent MRI of her brain, which revealed no evidence of metastatic disease. She was seen by Dr. Gabrielle lyman who felt that immune therapy may be a reasonable plan for her. She is discharged to [facility] or rehabilitation and outpatient oncology followup. /[id number]/MODL
== END 2018-05-31 17:11 | DRG 264 ==
LOC: EDUNIT# → F2W 12:34 → OBSVTOIN 05-25 09:59 → F1N 05-27 14:43
PROVIDERS: ADMIT Hospitalist; ATTEND Hospitalist
PROC: 07B53ZX Excision of Right Axillary Lymphatic, Percutaneous Approach, Diagnostic (ICD-10-PCS; principal; 2018-05-25)
DX: R55 Syncope and collapse (principal); T46.7X5A Adverse effect of peripheral vasodilators, initial encounter; C77.3 Secondary and unspecified malignant neoplasm of axilla and upper limb lymph nodes; C43.9 Malignant melanoma of skin, unspecified; R91.8 Other nonspecific abnormal finding of lung field; S82.401A Unspecified fracture of shaft of right fibula, initial encounter for closed fracture; W19.XXXA Unspecified fall, initial encounter; F03.90 Unspecified dementia, unspecified severity, without behavioral disturbance, psychotic disturbance, mood disturbance, and anxiety; I10 Essential (primary) hypertension; G47.33 Obstructive sleep apnea (adult) (pediatric); Z91.81 History of falling
CPT/HCPCS: 84484-PO; 86300-90; 86301-90; 88184-90; 88185-91; 97116-GP; 97161-GP; 97165-GO; 97530-GO; 97530-GP; 97535-GO; A9585; G0378; G8978-GP-CK; G8979-GP-CI; G8987-GO-CL; G8988-GO-CI; J2405; Q9967

== ENCOUNTER → 2018-07-12 | Outpatient (CLI) | payer OTHER, MEDICAID | LOC: BHFA 15:30 | PROVIDERS: ATTEND Internal Medicine Cardiovascular Disease | DX: Z51.11 Encounter for antineoplastic chemotherapy (principal) ==

== ENCOUNTER → 2018-09-10 | Outpatient (CLI) | payer OTHER ==
[~2018-09-10] MED LIST: GADOBUTROL 10 ML VIAL IVP ONE
== END ==
LOC: FIMAGING 15:58
DX: M51.36 Other intervertebral disc degeneration, lumbar region (principal); M48.061 Spinal stenosis, lumbar region without neurogenic claudication; M47.896 Other spondylosis, lumbar region; M41.86 Other forms of scoliosis, lumbar region; C43.9 Malignant melanoma of skin, unspecified
CPT/HCPCS: 72158; A9585

== ENCOUNTER 2018-11-05 09:06 | Inpatient (IN) | payer OTHER, MEDICAID ==
[2018-11-05] MEDS ORDERED: NS 500 ML IV ONE (09:13)
--- NOTE | 2018-11-05 09:13 | EDPHY ---
H & P Time Seen by Provider: 11/05/18 09:12 - Medical/Surgical History Hx Asthma: Yes Hx Chronic Respiratory Disease: No Hx Diabetes: No Hx Cardiac Disease: No Hx Renal Disease: No Hx Cirrhosis: No Hx Alcoholism: Yes Hx HIV/AIDS: No Hx Splenectomy or Spleen Trauma: No Other PMH: PMH- DEMENTIA, ASTHMA CHILD, HLD, PARTIAL DETACHED RETINA ( REPAIRED). PSH- "UTERUS REPAIR," EYE SURE - Social History Smoking Status: Never smoked Constitutional: Initial Vital Signs Temperature (C) 36.6 C 11/05/18 09:06 Heart Rate 52 L 11/05/18 09:06 Respiratory Rate 16 11/05/18 09:06 O2 Sat (%) 94 11/05/18 09:06 O2 Delivery Mode Room Air Allergies/Adverse Reactions: niacin Allergy (Severe, Verified 05/27/18 19:25) Syncope Sulfa (Sulfonamide Antibiotics) Allergy (Verified 02/27/14 16:10) Unknown DUST Allergy (Uncoded 02/27/14 16:10) Home Medications: Medication Instructions Recorded Herbals/Supplements -Info Only 1 ea PO AD 02/27/14 Sertraline HCl [Zoloft 25mg (*)] 50 mg PO DAILY 02/27/14 Donepezil HCl [Aricept] 10 mg PO HS 06/12/14 Ascorbic Acid [Vitamin C 500 mg 500 mg PO DAILY 05/24/18 (*)] Cholecalciferol Vit D3 [Vitamin D3 1,000 units PO DAILY 05/24/18 (*)] Estrogens,Conjugated [Premarin 1 moraima VG Q3D 05/24/18 Vaginal (*)] Lisinopril [Zestril 5 mg (*)] 5 mg PO DAILY 05/24/18 Memantine HCl [Namenda Xr] 21 mg PO DAILY 05/24/18 Medical Decision Making - Diagnostics Imaging Results: Imaging Impressions Chest X-Ray 11/05/18 09:13 Impression: 1. Stable fibrotic change at the left base. 2. No active cardiopulmonary disease seen. Imaging: I viewed and interpreted images myself ED Course/Re-evaluation: CHIEF COMPLAINT: Syncope HISTORY OF PRESENT ILLNESS: The patient is an 83 y/o female with a history of dementia, melanoma with mets to the brain, asthma, and syncope arriving via EMS after a syncopal episode today. In May, 6 months ago, the patient was admitted for a week to this hospital for a syncope. During that admission she had a normal echocardiogram and chest CTA. She did have a brain MRI which revealed melanoma mets to the brain. She was discharged home without any significant findings besides the mets in the brain. Today the patient had another syncopal episode and was unconscious for around 2 minutes. She woke up and then had a large bowel movement. She denies any other injuries. This patient is a poor historian due to her dementia. No fever, headache, body aches, lightheadedness, chest pain, shortness of breath, cough, abdominal pain, urinary or bowel complaints, numbness, paresthesias. REVIEW OF SYSTEMS: A comprehensive 10 system review of systems is otherwise negative aside from elements mentioned in the history of present illness and medical decision making. PHYSICAL EXAM: HR, BP, O2 Sat, RR. Temp noted General Appearance: Alert, well hydrated, appropriate, and non-toxic appearing. Head: Atraumatic without scalp tenderness or obvious injury Eyes: Pupils equal, round, reactive to light and accommodation, EOMI, no trauma , no injection. Ears: Clear bilaterally, no perforation, normal landmarks Nose: Atraumatic, no rhinorrhea, clear. Throat: There is no erythema or exudates, no lesions, normal tonsils, mucus membranes moist. Neck: Supple, 2+ carotid upstroke, nontender, no lymphadenopathy. Respiratory: No retractions, no distress, no wheezes, and no accessory muscle use. Lungs are clear to auscultation bilaterally. Cardiovascular: Bradycardia and PVC's, no murmurs, rubs, or gallops. Bilateral carotid, radial, dorsalis pedis, and posterior tibial pulses intact. Good capillary refill all extremities. Gastrointestinal: Abdomen is soft, nontender, non-distended, no masses, no rebound, no guarding, no peritoneal signs. Musculoskeletal: Normal active ROM of all extremities, atraumatic. Neurological: Alert, appropriate, and interactive. The patient has normal DTRs and non-focal cranial nerves, motor, sensory, and cerebellar exam. Skin: No rashes, good turgor, no nodules on palpation. Past medical history: Dementia, melanoma with mets to the brain, asthma, hyperlipidemia, syncope Past surgical history: Retinal repair Family history: Denies Social history: Lives in [place], single, retired DIAGNOSTICS/PROCEDURES/CRITICAL CARE TIME: EKG: The 12 lead EKG was interpreted by myself as sinus rhythm with a rate of 52 , prolonged NJ interval, and prolonged QT interval. See hard copy and/or "tracemaster" electronic copy for interpretation. This EKG is similar to her EKG in May during her last admission. Chest x-ray: Stable fibrotic change at the left base. No active cardiopulmonary disease seen. DIFFERENTIAL DIAGNOSIS: The differential diagnosis for the patient's syncope included but was not limited to vasovagal syncope, arrhythmia, dehydration, cardiogenic causes, neurogenic causes, and blood loss. MEDICAL DECISION MAKING: The patient is an 83 y/o female with a history of dementia, melanoma with mets to the brain, asthma, and syncope arriving via EMS after a syncopal episode today. In May, 6 months ago, the patient was admitted for a week to this hospital for a syncope. During that admission she had a normal echocardiogram and chest CTA. She did have a brain MRI which revealed melanoma mets to the brain. However, they did not do an extensive cardiac workup during that admission. Today the patient had another syncopal episode and was unconscious for around 2 minutes. She woke up and then had a large bowel movement. On exam she is bradycardic and has PVC's. There are no obvious injuries present on exam. Labs, chest x-ray, and EKG ordered; 500mL IV NS administered. 0916: I interpreted patient's EKG as sinus rhythm with a rate of 52, prolonged NJ interval, and prolonged QT interval. This EKG is similar to her EKG in May during her last admission. 0952: I consulted with the hospitalist service, Dr. Maravilla accepts admission of this patient for further syncope workup. I suspect the patient's syncope is due to a dysrhythmia and not brain mets. I will also page cardiology to consult. 1000: I consulted with Ailyn, paper bag maker SHORTY, regarding this patient. [facility] agrees to consult on this patient during her admission. - Data Points Laboratory Results: Laboratory Results 11/05/18 09:10 11/05/18 09:10 11/05/18 11/05/18 11/05/18 09:24 09:10 09:10 WBC 6.89 10^3/uL 10^3/uL (3.80-9.50) RBC 5.41 10^6/uL H 10^6/uL (4.18-5.33) Hgb 15.7 g/dL g/dL (12.6-16.3) Hct 46.9 % % (38.0-47.0) MCV 86.7 fL fL (81.5-99.8) MCH 29.0 pg pg (27.9-34.1) MCHC 33.5 g/dL g/dL (32.4-36.7) RDW 13.6 % % (11.5-15.2) Plt Count 235 10^3/uL 10^3/uL (150-400) MPV 9.8 fL fL (8.7-11.7) Neut % (Auto) 56.0 % % (39.3-74.2) Lymph % (Auto) 30.9 % % (15.0-45.0) Waldo % (Auto) 8.9 % % (4.5-13.0) Eos % (Auto) 3.0 % % (0.6-7.6) Baso % (Auto) 0.9 % % (0.3-1.7) Nucleat RBC Rel Count 0.0 % % (0.0-0.2) Absolute Neuts (auto) 3.86 10^3/uL 10^3/uL (1.70-6.50) Absolute Lymphs (auto) 2.13 10^3/uL 10^3/uL (1.00-3.00) Absolute Monos (auto) 0.61 10^3/uL 10^3/uL (0.30-0.80) Absolute Eos (auto) 0.21 10^3/uL 10^3/uL (0.03-0.40) Absolute Basos (auto) 0.06 10^3/uL 10^3/uL (0.02-0.10) Absolute Nucleated RBC 0.00 10^3/uL 10^3/uL (0-0.01) Immature Gran % 0.3 % % (0.0-1.1) Immature Gran # 0.02 10^3/uL 10^3/uL (0.00-0.10) Sodium 141 mEq/L mEq/L (135-145) Potassium 4.3 mEq/L mEq/L (3.5-5.2) Chloride 103 mEq/L mEq/L (97-110) Carbon Dioxide 25 mEq/l mEq/l (22-31) Anion Gap 13 mEq/L mEq/L (6-14) BUN 22 mg/dL mg/dL (7-23) Creatinine 1.1 mg/dL H mg/dL (0.6-1.0) Estimated GFR 47 Glucose 134 mg/dL H mg/dL (70-100) Calcium 10.2 mg/dL mg/dL (8.5-10.4) POC Troponin I 0.01 ng/mL ng/mL (0.00-0.08) NT-Pro-B Natriuret Pep 284 pg/mL pg/mL (0-450) Medications Given: Discontinued Medications Sodium Chloride (Ns) 500 mls @ 0 mls/hr IV EDNOW ONE; Wide Open PRN Reason: Protocol Stop: 11/05/18 09:14 Last Admin: 11/05/18 09:30 Dose: 500 mls Point of Care Test Results: Chemistry 11/05/18 09:24 POC Troponin I 0.01 ng/mL ng/mL (0.00-0.08) Departure - Departure Disposition: [facility] Inpatient Acute Clinical Impression: Syncope Qualifiers: Syncope type: vasovagal syncope Qualified Code(s): R55 - Syncope and collapse Condition: Fair Instructions: Syncope (ED) Referrals: Patient,NotPresent [Primary Care Provider] - As per Instructions Report Scribed for: Teja Staley Report Scribed by: Jolly Carroll Date of Report: 11/05/18 Time of Report: 09:14
[2018-11-05 09:30] LABS: PLATELET COUNT 235 10^3/uL (150-400)
[2018-11-05] MEDS ORDERED: ONDANSETRON 4 MG/2 ML VIAL IVP PRN (10:36)
[2018-11-05] MEDS ORDERED: ACETAMINOPHEN 325 MG TAB PO PRN (10:36)
[2018-11-05] MEDS ORDERED: ONDANSETRON DISINTEGRATING 4 MG TAB PO PRN (10:36)
[2018-11-05] MEDS ORDERED: FLUTICASONE NASAL 120 SPRAYS/16 GM MDI EACHNARE PRN (10:48)
[2018-11-05] MEDS ORDERED: diphenhydrAMINE 25 MG CAP PO PRN (10:48)
--- NOTE | 2018-11-05 11:03 | PDGENHP ---
History and Physical - Chief Complaint syncope - History of Present Illness 83yo F with history of malignant melanoma with metastatic disease (lymph nodes, lung), HTN, dementia presents from assisted living facility after episode of passing out. This was reportedly witnessed. She was out for about two minutes. She did not hit her head. She lost control of her bowels immediately after the event. She had been feeling a bit "fuzzy" this morning just prior to the event. She denies any antecedent dizziness/lightheadedness, chest discomfort, palpitations, vertigo, diaphoresis, or shortness of breath. She normally does not eat or drink very much. No nausea, vomiting, or diarrhea. No recent medication changes. She is currently feeling well without complaints. She is being admitted for further evaluation and observation. Of note, she was hospitalized for syncope 05/2018. She had evaluation including TTE, CTA chest, and brain imaging that were unremarkable. During this hospitalization, she was noted to have adenopathy that was biopsied and she was diagnosed with metastatic melanoma. A brain MRI at that time did not show any evidence of metastatic disease. Additionally, she has been followed by cardiology for her HTN and abnormal ECG. She had a lexiscan stress test 12/2017 that was normal. She had a 48 hour holter monitor 01/2018 that showed sinus bradycardia with 1st degree AV block, occasional PACs, and rare PVCs but no other bradyarrhythmias or pauses. History Information - Allergies/Home Medication List Allergies/Adverse Reactions: niacin Allergy (Severe, Verified 05/27/18 19:25) Syncope Sulfa (Sulfonamide Antibiotics) Allergy (Verified 02/27/14 16:10) Unknown DUST Allergy (Uncoded 02/27/14 16:10) Home Medications: Herbals/Supplements -Info Only 1 ea PO AD 02/27/14 [Last Taken 01/29/15] Sertraline HCl [Zoloft 25mg (*)] 75 mg PO DAILY 02/27/14 [Last Taken 11/04/18] Donepezil HCl [Aricept] 10 mg PO HS 06/12/14 [Last Taken 11/04/18] Ascorbic Acid [Vitamin C 500 mg (*)] 500 mg PO DAILY 05/24/18 [Last Taken ] Cholecalciferol Vit D3 [Vitamin D3 (*)] 1,000 units PO DAILY 05/24/18 [Last Taken 11/04/18] Lisinopril [Zestril 5 mg (*)] 5 mg PO DAILY 05/24/18 [Last Taken 11/04/18] Memantine HCl [Namenda Xr] 21 mg PO DAILY 05/24/18 [Last Taken 11/04/18] Fluticasone Nasal [Flonase Nasal Cade (RX)] 1 sprays NASAL DAILY PRN 11/05/18 [ Last Taken Unknown] Multivitamins [Multivitamin (*)] 1 each PO DAILY 11/05/18 [Last Taken 11/04/18] Volin-3 Fatty Acids [Fish Oil 1000 mg (*)] 1,000 mg PO DAILY 11/05/18 [Last Taken 11/04/18] diphenhydrAMINE [Benadryl 25 MG (*)] 25 mg PO DAILY PRN 11/05/18 [Last Taken Unknown] I have personally reviewed and updated: family history, medical history, social history, surgical history - Past Medical History Additional medical history: malignant melanoma with metastases (lymph nodes, lung), dementia, FABIO, HTN, mild-moderate AI, chronic diastolic dysfunction - Surgical History Additional surgical history: retinal detachment with surgical repair - Family History Positive for: non-pertinent - Social History Smoking Status: Never smoked Alcohol Use: None Drug Use: None Additional social history: Lives in independent living facility. Review of Systems Review of Systems: ROS: 10pt was reviewed & negative except for what was stated in HPI & below Physical Exam Physical Exam: Temp Pulse Resp BP Pulse Ox 37.0 C 62 18 143/79 H 92 11/05/18 10:40 11/05/18 10:40 11/05/18 10:40 11/05/18 10:40 11/05/18 10:40 Constitutional: no apparent distress, appears nourished, not in pain Eyes: PERRL, anicteric sclera, EOMI Ears, Nose, Mouth, Throat: hearing normal, ears appear normal, no oral mucosal ulcers, dry mucous membranes Cardiovascular: regular rate and rhythym, no murmur, rub, or gallop, No JVD, No edema Respiratory: no respiratory distress, no rales or rhonchi, clear to auscultation Gastrointestinal: normoactive bowel sounds, soft, non-tender abdomen, no palpable masses Genitourinary: no bladder fullness, no bladder tenderness Skin: warm, normal color, no rashes or abrasions, no fluctuance, no induration, No mottled Musculoskeletal: full muscle strength Neurologic: sensation intact bilaterally, CN II-XII Intact, other (alert, not fully oriented), No weakness, No numbness, No pronator drift Psychiatric: encephalopathic Lab Data & Imaging Review 11/05/18 09:10 11/05/18 09:10 WBC 6.89 10^3/uL (3.80-9.50) 11/05/18 09:10 RBC 5.41 10^6/uL (4.18-5.33) H 11/05/18 09:10 Hgb 15.7 g/dL (12.6-16.3) 11/05/18 09:10 Hct 46.9 % (38.0-47.0) 11/05/18 09:10 MCV 86.7 fL (81.5-99.8) 11/05/18 09:10 MCH 29.0 pg (27.9-34.1) 11/05/18 09:10 MCHC 33.5 g/dL (32.4-36.7) 11/05/18 09:10 RDW 13.6 % (11.5-15.2) 11/05/18 09:10 Plt Count 235 10^3/uL (150-400) 11/05/18 09:10 MPV 9.8 fL (8.7-11.7) 11/05/18 09:10 Neut % (Auto) 56.0 % (39.3-74.2) 11/05/18 09:10 Lymph % (Auto) 30.9 % (15.0-45.0) 11/05/18 09:10 [place]bour % (Auto) 8.9 % (4.5-13.0) 11/05/18 09:10 Eos % (Auto) 3.0 % (0.6-7.6) 11/05/18 09:10 Baso % (Auto) 0.9 % (0.3-1.7) 11/05/18 09:10 Nucleat RBC Rel Count 0.0 % (0.0-0.2) 11/05/18 09:10 Absolute Neuts (auto) 3.86 10^3/uL (1.70-6.50) 11/05/18 09:10 Absolute Lymphs (auto) 2.13 10^3/uL (1.00-3.00) 11/05/18 09:10 Absolute Monos (auto) 0.61 10^3/uL (0.30-0.80) 11/05/18 09:10 Absolute Eos (auto) 0.21 10^3/uL (0.03-0.40) 11/05/18 09:10 Absolute Basos (auto) 0.06 10^3/uL (0.02-0.10) 11/05/18 09:10 Absolute Nucleated RBC 0.00 10^3/uL (0-0.01) 11/05/18 09:10 Immature Gran % 0.3 % (0.0-1.1) 11/05/18 09:10 Immature Gran # 0.02 10^3/uL (0.00-0.10) 11/05/18 09:10 Sodium 141 mEq/L (135-145) 11/05/18 09:10 Potassium 4.3 mEq/L (3.5-5.2) 11/05/18 09:10 Chloride 103 mEq/L (97-110) 11/05/18 09:10 Carbon Dioxide 25 mEq/l (22-31) 11/05/18 09:10 Anion Gap 13 mEq/L (6-14) 11/05/18 09:10 BUN 22 mg/dL (7-23) 11/05/18 09:10 Creatinine 1.1 mg/dL (0.6-1.0) H 11/05/18 09:10 Estimated GFR 47 11/05/18 09:10 Glucose 134 mg/dL (70-100) H 11/05/18 09:10 Calcium 10.2 mg/dL (8.5-10.4) 11/05/18 09:10 POC Troponin I 0.01 ng/mL (0.00-0.08) 11/05/18 09:24 NT-Pro-B Natriuret Pep 284 pg/mL (0-450) 11/05/18 09:10 Interpretation: CXR: borderline enlarged heart, no significant pulmonary edema, no pleural effusion, no focal infiltrate, fibrotic streaks at left base which are old (reviewed by me) EKG additional interpertation: ECG: sinus bradycardia, 1st degree AV block, nonspecific T wave flattening in all precordial leads which are old (reviewed by me) Assessment & Plan Assessment: 83yo F with history of malignant melanoma with metastatic disease (lymph nodes, lung), HTN, dementia presents from assisted living facility after episode of syncope. Plan: #Syncope: Concern for orthostasis vs chronotropic incompetence. Less likely other cardiac issue as had ischemic eval and echocardiogram recently that were normal; initial troponin/ecg neg for ischemia as well. Considered brain metastases but would be more likely to cause seizure than syncope. Low suspicion for stroke given normal neurologic exam (besides baseline cognitive deficits). - Telemetry monitoring - Ordered treadmill test to eval chronotropic competence - Hold anti-hypertensives - Will discuss w/oncology re: recent imaging studies #Sinus bradycardia: Chronic with 1st degree AV block. #RADHA: Suspect prerenal/dehydration. S/p bolus in ED, will continue maintenance IVF. Hold lisinopril. #Metastatic melanoma: She is followed by Dr Thompson and currently undergoing immunotherapy. #Dementia: Continue home namenda and aricept. #HTN: Holding les inhibitor. #FABIO: Uses nocturnal O2, didn't tolerate PAP. VTE ppx: SCDs Diet: regular Dispo: Admit under observation
--- NOTE | 2018-11-05 13:49 | CPEKG ---
Test Reason : OPEN Blood Pressure : / mmHG Vent. Rate : 052 BPM Atrial Rate : 053 BPM P-R Int : 259 ms QRS Dur : 088 ms QT Int : 561 ms P-R-T Axes : 038 -31 027 degrees QTc Int : 522 ms Sinus rhythm Prolonged MD interval Inferior infarct, old Prolonged QT interval Confirmed by Teja Staley ([id number]) on 11/05/2018 1:48:57 PM Referred By: Teja Staley Confirmed By:Teja Staley
[2018-11-05] MEDS: NS 1,000 ML IV SCH (14:11)
--- NOTE | 2018-11-05 15:09 | PDCARST ---
CAR Stress Test Results Type of Stress Test: TM stress test Indication: syncope/evaluate chronotropic competence Description of Procedure: Pt was established to ECG, BP, HR monitoring. She walked on the treadmill for 20 seconds and started to feel dizzy. Treadmill stress test was aborted. Impression: Aborted stress test. Conclusion: Patient ambulated the halls after baldo aborted stress test. On her telemetry box, she was able to augment her heart rate from 61 to 90 bpm.
[2018-11-05] MEDS: DONEPEZIL HCL 5 MG TAB PO SCH (20:20)
[2018-11-06] MEDS: NS 1,000 ML IV SCH (03:21)
[2018-11-06] MEDS: SERTRALINE HCL 25 MG TAB PO SCH (08:16)
[2018-11-06] MEDS: MEMANTINE HCL 21 MG PO SCH (08:17)
[2018-11-06] MEDS ORDERED: LISINOPRIL 5 MG TAB PO SCH (09:00)
--- NOTE | 2018-11-06 12:24 | HOSPPROG ---
Hospitalist Progress Note Assessment/Plan: 83yo F with history of malignant melanoma with metastatic disease, HTN, dementia presents from independent living facility after episode of unresponsiveness. #Episode of unresponsiveness: Accompanied by staring spell and confusion concerning for seizure. Neuro intact besides baseline dementia. Per neurology Redig notes, this has occurred in the past and been evaluated with EEG which was normal. Untreated sleep apnea could be possible etiology. Brain MRI 05/2018 and PET 06/2018 without ONCOLOGY NURSE NAVIGATOR mets. Not c/w orthostasis, arrhythmia, valvular heart issue. - CT head to eval for mets - Will d/w her neurologist Dr Waldo Osorio #Sinus bradycardia: Chronic with 1st degree AV block. She demonstrated chronotropic competence so doubt driving symptoms. #RADHA: Resolved with fluids. #Metastatic melanoma: Mets to lymph nodes, lung, pericardium, right atrium, thighs based on 06/2018 PET. She is followed by Dr Thompson and currently undergoing immunotherapy. - Will get limited echo to evaluate pericardium #Dementia: Continue home namenda and aricept. #HTN: I have stopped her lisinopril and BP has been controlled. #FABIO: Uses nocturnal O2, didn't tolerate PAP. #Deconditioning: PT recommending SNF VTE ppx: SCDs Diet: regular Dispo: Switch to inpatient, unsafe for dc Subjective: Still feeling a bit foggy mentally. No new neurologic symptoms or syncope or "spells." It was clarified that her episode at her living facility lasted about 10 minutes and consisted of her being unresponsive and staring off. Objective: Vital Signs Temp Pulse Resp BP Pulse Ox 36.6 C 55 L 20 131/61 H 94 11/06/18 11:05 11/06/18 11:05 11/06/18 11:05 11/06/18 11:05 11/06/18 11:05 Laboratory Results 11/06/18 04:10 11/05/18 11/06/18 11/07/18 05:59 05:59 05:59 Intake Total 3700 Output Total 1300 Balance 2400 - Physical Exam Constitutional: no apparent distress, not in pain, other (thin, frail) Eyes: PERRL, anicteric sclera, EOMI Ears, Nose, Mouth, Throat: moist mucous membranes, hearing normal, ears appear normal, no oral mucosal ulcers Cardiovascular: regular rate and rhythym, no murmur, rub, or gallop, No edema Respiratory: no respiratory distress, no rales or rhonchi, clear to auscultation Gastrointestinal: normoactive bowel sounds, soft, non-tender abdomen, no palpable masses Genitourinary: no bladder fullness, no bladder tenderness, no renal bruits Skin: no rashes or abrasions, no fluctuance, no induration Musculoskeletal: generalized weakness Neurologic: CN II-XII Intact, other (alert, not oriented) Psychiatric: encephalopathic ICD10 Worksheet Patient Problems: Problems Problem Status Onset Syncope Acute Uterovaginal prolapse, complete Acute Vomiting Acute
--- NOTE | 2018-11-06 13:10 | PDMN ---
Medical Necessity Medical necessity: Change to IP, as of 11/06/18, per [facility]; los >2 mn for ongoing eval of metastatic melanoma w/bradycardia, deconditioning & recent episode of unresponsiveness concerning for seizure; requiring further monitoring, Neuro consult w/brain MRI to eval mets, med management & therapies; comorbid advanced age, dementia
[2018-11-06] MEDS: levETIRAcetam 500 MG TAB PO SCH ×2 (14:31→21:15)
--- NOTE | 2018-11-06 15:22 | ASMTCMCOM ---
CM Note CM Note Notes: Pts case discussed w/ Dr. Maravilla. Pt is a 83 y/o female admitted for a syncopal episode. CM spoke to pts daughter Irene (P#: [phone] or [phone]) on the phone. Irene reports that pt is currently getting [facility]BS services. Pts ACID porter sample case is Jaclyn Boyce (P#: [phone]). CM left Jaclyn a msg. Pt is current w/ [facility] (P#: [phone]) for her caregivers. CM left a msg for Shody at [facility]. Pt is current w/ [facility] for RN and CEMENTER MACHINE APPLICATOR services (P#: [phone]). Pts PCP is Lola Stoddard. CM had admissions add it into pts demographics. [facility]errals [facility] to [facility]. CM to follow. Plan: [facility]; caregivers, [facility]; RN, CEMENTER MACHINE APPLICATOR and has ACID porter sample case Date Signed: 11/06/2018 03:19 PM Electronically Signed By:ALHAJI Mckeon
[2018-11-06] MEDS ORDERED: GADOBUTROL 10 ML VIAL IVP ONE (17:33)
--- NOTE | 2018-11-06 18:31 | ECHO ---
[email or web address] [address] [address] Main: [phone] Echocardiography Examination Transthoracic Name: STIVEN BARRIENTOS MR#: [id number] Study Date: 11/06/2018 Study Time: 01:06 PM Date of : 1935 Age: 83 year(s) Height: 165.1 cm (65 in.) Weight: 58.97 kg (130 lb.) BSA: 1.65 m2 Gender: Female Examination: Echo Contrast: Image Quality: Rhythm: Heart Rate: 52 bpm BP: 131 mmHg/61 mmHg Indication: Eval for Pericardial effusion Procedure Staff Referring Physician: [employer] Supervisor: Mayur Sanchez RDCS Reading Physician: Sandor Lynn MD Requesting Provider: Ordering Physician: Que Maravilla Indication: Eval for Pericardial effusion Measurements Chambers AV/MV Label Value Normal Value Label Value Normal Value LVOT Vmax 1.29 m/s (0.7m/s - 1.1m/s) AR PHT 0.72 s LVOTd 1.9 cm (1.8cm - 2cm) AR PHT 721 ms LVOT VTI 30 cm (18cm - 22cm) AR Vmax 4.85 m/s LVDd, 2D 4.1 cm (3.9cm - 5.3cm) AV PGmax 9 mmHg LVDs, 2D 2.6 cm (2.1cm - 4cm) AV PGmean 4 mmHg IVSd, 2D 0.7 cm (0.6cm - 1.1cm) AV Vmax 1.47 m/s LVPWd, 2D 0.9 cm EDDIE (Vmax) 2.5 cm2 LVEF, 2D 66 % (54% - 74%) EDDIE (VTI) 2.2 cm2 LVOT PGmean 3 mmHg MV E Vmax 0.92 m/s LVOT Vmean 0.79 m/s MV A Vmax 0.66 m/s RVDd, 2D 2.4 cm (1.9cm - 3.8cm) MV E/A 1.39 Additional Vessels MV E/E' lateral 13.7 Label Value Normal Value MV E/E' septal 20.2 (0.45 - 1.25) AoRoot, MM 4 cm (2.2cm - 3.7cm) MV E' septal 0.05 m/s MV E' lateral 0.07 m/s MV E/E' mean 15.33 MV E' mean 0.06 m/s TV/PV Label Value Normal Value Patient: STIVEN BARRIENTOS Study Date: 11/06/2018 Page 1 of 3 01:06 PM OR End pike Mason 0.99 cm/s PV PGmax 2 mmHg PV Vmax, Caliper 0.76 m/s (0.6m/s - 0.9m/s) Conclusions Compared to previous study in May 2018, there is no evidence of LVH. No other significant change. Left Ventricle: Left ventricle is normal in size. Normal global systolic left ventricular function. Left ventricle wall thickness is normal. Grade I Diastolic Dysfunction. No LV hypertrophy. Right Ventricle: The RV function appears grossly normal. Pericardium: No pericardial effusion. Findings Left Ventricle: Left ventricle is normal in size. Normal global systolic left ventricular function. Left ventricle wall thickness is normal. There are no regional wall motion abnormalities. Grade I Diastolic Dysfunction. No LV hypertrophy. Right Ventricle: Normal size right ventricle. The RV function appears grossly normal. Left Atrium: The left atrium is normal in size. Right Atrium: The right atrium is normal in size. Mitral Valve: Mitral valve appears structurally normal. Trivial mitral regurgitation. Aortic Valve: Mild aortic regurgitation is present. There is no aortic stenosis. Aortic leaflets exhibit no calcification. The aortic valve is trileaflet. Tricuspid Valve: Tricuspid valve leaflets are normal in appearance and function. Trivial tricuspid regurgitation. Pulmonic Valve: Pulmonic leaflets are normal in appearance and function. Mild pulmonic valve regurgitation is present. Aorta: The aorta is normal. The aortic root size in M-mode measures 4.0 cm. Aorta Measurements AoRoot, MM is 4.0 cm. Pericardium: No pericardial effusion. Exam Details Procedure Ordered: Echo (No Signature Object) Patient: STIVEN BARRIENTOS Study Date: 11/06/2018 Page 2 of 3 01:06 PM Patient: STIVEN BARRIENTOS Study Date: 11/06/2018 Page 3 of 3 01:06 PM [id number]
--- NOTE | 2018-11-06 18:48 | NEUROPROG ---
Assessment: [id number] - CC: Transient Alteration of Awareness - Narrative Summary: This elderly female patient was initially seen 02/18/15. The patient reported it was noted in 2013 she had problems with her memory but she feels the symptoms could have been present before this. She reported her memory problems seems to come and go. She lives with her son and gets her meal from meals on wheels. She does have fibromyalgia and has low energy. She denied getting lost but does occasionally forget to pay bills. It was also noted she has not fallen in the last year but did fall in 2011. It was noted she sometimes rolls off the bed by accident. She states she feels she has poor balance and has a pending visit with a physical therapist to address her balance issues. She also noted she has problems with speech. She noted every now and then she has problems producing speech. CUrrently she has no speech problems while talking with me. She does report some vision problems and plans to see an eye doctor. She reported she has problems sleeping and has depression. For her memory problems she was placed on aricept 5 mg qd and Namenda 28 mg po qd which she feels helps her memory. She was currently not sure what meds she was on. 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 I referred her for neuropsych testing. I agreed with her pending referral to physical therapy for gait issues. She was told to f/u after neuropsych referral. - She presented for f/u on 10/07/15. She had neuropsych testing on 04/03/15 that found mild cognitive impairment, non-amnestic type, affecting multiple domains and not thought to be fully accounted for by her known mild depression. Therefore, it appears her cognitive issues are likely from an underlying dementia with superimposed depression. 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 The neuropsych testing also observed her to have some staring episodes for few seconds with abrupt behavioral arrest followed by brief confusion suggesting the possibility of seizures versus sundowning episodes. It was also recommended she not drive. I ordered an EEG and told her to f/u in 2 months but call after the EEG study. She confirmed she was on sertraline 25mg po qd, Namenda XR 21 mg qd, and Aricept 10 mg qd. - She presented for a f/u on 11/19/15. Her routine EEG was normal. She continued to take Namenda XR 21 mg qd and aricept 10 mg qd w/o problems and denied any new cognitive problems. She was also still on sertraline 25mg po qd for depression. I ordered a 24 hour EEG and told her to f/u in but call after EEG was completed. She was not driving anymore. There were no witnessed seizures. SHe continued to have gait issues for which she was seeing physical therapy. She also continued to have sleep issues and I reminded her she had a pending sleep medicine consult to address this. - F/U on 05/05/16. She saw sleep medicine and was diagnosed with sleep apnea. She had stopped the aricept due to dizziness. She reported the staring spells have resolved and she had forgotten to do the 24 hour EEG. I canceled the EEG and told her to f/u with me in 12 months. - F/U on 01/13/17. She reported slowly worsening short term memory and cognitive problems. She reported she has not yet been able to find an effective therapy for her sleep apnea (could not tolerate CPAP). She reported worsening problems with ADLs. I felt her dementia was progressing in the setting of untreated sleep apnea. I recommend OT therapy and also told her to continue working with her sleep doctor to find treatment for her sleep apnea. She can f/u with me in 3 months. - F/U 10/31/18. She had been working with [facility] and they had increased her Namenda XR from 21 mg qd to 28 mg qd. They had also restarted pt on aricept 10 mg qd. Pt felt well on the meds and felt her memory loss from dementia was stable. She did request a referral to a dementia expert at [facility] to inquire about any medication trials for new drugs that could treat dementia. No other complaints. Pt told to f/u as needed. - HPI: Pt admitted to [facility] on 11/05/18 for brief episode of altered awareness. Similar event in the past suspicious for possible focal seizure. Pt has dementia which is a risk for seizures. Also with history of melanoma. Neurologic exam nonfocal. Episode of altered awareness suspicious for seizure vs sundowning phenomena in dementia. Will get brain MRI wwo to ensure no mets from melanoma to brain. Will also begin Keppra 500 mg bid for seizure prevention. Pt not driving but advised to follow seizure precautions until event free for 90 days. - PMHx:melanoma, dementia, FABIO, HTN, AI, retinal detachment - SHx: no tobacco FHx: daughter alive - ROS: Pt denied acute fever, total vision loss, active severe chest pain, respiratory failure, total body severe rash, total bowel/bladder incontinence, psychosis, active seizures, or active bleeding - O: VS reviewed General: Alert Eyes: Fundoscopic exam not able to visualize optic disks CV: Heart RRR, no murmur, no carotid bruit Lungs: Clear to auscultation bilaterally, no rhonchi or rales Neuro: - Mental: . Oriented x person/place/date . concentration appears normal . speech fluency/comprehension normal . memory appears normal . fund of knowledge appear intact - Cranial Nerves: . II: PERRL, VFFTC . III/IV/: EOMI, no nystagmus, normal smooth pursuits, no Ptosis . V: facial sensation intact to LT . VII: face symmetric to eye closure and smile . VIII: hearing intact to conversation . IX/X: uvula raises symmetrically . XI: SCM 5/5 B/L strength . XII: tongue protrudes midline w/nl strength - Motor: . Tone: normal tone in all 4 extremity . Strength: no pronator drift, strength 5/5 throughout - Reflexes: B/L bic 2/4 - Sensory: all 4 extremity intact to light touch - Coord: SYLVIA wnl - Gait: deferred - Labs: 04/09/14- CBC wnl, CMP AST/ALT very mild elevation, TSH wnl, B12 1233 11/05/18- Na 141 - Rads: 04/10/14- Cranial MRI w/o con: mild CMVD, mild predominantly frontal brain volume loss - 04/03/15- Neuropsych testing: mild cognitive impairment, non-amnestic type, affecting multiple domains and not thought to be fully accounted for by her known mild depression - 11/05/18- CXR: Stable fibrotic change at the left base. No active cardiopulmonary disease seen (I personally visualized the images on 11/06/18) - Assessment: 1. Dementia 2. Episode of transient alteration of awareness on 11/05/18: DDx is focal seizure vs sundowning phenomena in dementia - Plan: - Agree with Namenda XR 28 mg qd for dementia - Agree with Aricept 10 mg qd for dementia - Begin Keppra 500 mg bid for seizure prevention - Brain MRI wwo - Seizure precautions and no driving until episode free for 90 days - F/U in neurology clinic 4-6 weeks after hospital discharge, will consider repeat EEG at that time Objective: Vital Signs Temp Pulse Resp BP Pulse Ox 36.6 C 62 20 129/69 H 90 L 11/06/18 16:00 11/06/18 16:00 11/06/18 16:00 11/06/18 16:00 11/06/18 16:00 11/05/18 11/06/18 11/07/18 05:59 05:59 05:59 Intake Total 1400 Balance 1400 Allergies/Adverse Reactions: niacin Allergy (Severe, Verified 05/27/18 19:25) Syncope Sulfa (Sulfonamide Antibiotics) Allergy (Verified 02/27/14 16:10) Unknown DUST Allergy (Uncoded 02/27/14 16:10)
[2018-11-06] MEDS: DONEPEZIL HCL 5 MG TAB PO SCH (21:15)
[2018-11-07] MEDS: SERTRALINE HCL 25 MG TAB PO SCH (08:47)
[2018-11-07] MEDS: levETIRAcetam 500 MG TAB PO SCH (08:47)
[2018-11-07] MEDS: MEMANTINE HCL 21 MG PO SCH (08:47)
--- NOTE | 2018-11-07 09:23 | NEUROPROG ---
Assessment: [id number] - CC: F/U for Transient Alteration of Awareness, dementia - Narrative Summary: This elderly female patient was initially seen 02/18/15. The patient reported it was noted in 2013 she had problems with her memory but she feels the symptoms could have been present before this. She reported her memory problems seems to come and go. She lives with her son and gets her meal from meals on wheels. She does have fibromyalgia and has low energy. She denied getting lost but does occasionally forget to pay bills. It was also noted she has not fallen in the last year but did fall in 2011. It was noted she sometimes rolls off the bed by accident. She states she feels she has poor balance and has a pending visit with a physical therapist to address her balance issues. She also noted she has problems with speech. She noted every now and then she has problems producing speech. CUrrently she has no speech problems while talking with me. She does report some vision problems and plans to see an eye doctor. She reported she has problems sleeping and has depression. For her memory problems she was placed on aricept 5 mg qd and Namenda 28 mg po qd which she feels helps her memory. She was currently not sure what meds she was on. 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 I referred her for neuropsych testing. I agreed with her pending referral to physical therapy for gait issues. She was told to f/u after neuropsych referral. - She presented for f/u on 10/07/15. She had neuropsych testing on 04/03/15 that found mild cognitive impairment, non-amnestic type, affecting multiple domains and not thought to be fully accounted for by her known mild depression. Therefore, it appears her cognitive issues are likely from an underlying dementia with superimposed depression. 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 The neuropsych testing also observed her to have some staring episodes for few seconds with abrupt behavioral arrest followed by brief confusion suggesting the possibility of seizures versus sundowning episodes. It was also recommended she not drive. I ordered an EEG and told her to f/u in 2 months but call after the EEG study. She confirmed she was on sertraline 25mg po qd, Namenda XR 21 mg qd, and Aricept 10 mg qd. - She presented for a f/u on 11/19/15. Her routine EEG was normal. She continued to take Namenda XR 21 mg qd and aricept 10 mg qd w/o problems and denied any new cognitive problems. She was also still on sertraline 25mg po qd for depression. I ordered a 24 hour EEG and told her to f/u in but call after EEG was completed. She was not driving anymore. There were no witnessed seizures. SHe continued to have gait issues for which she was seeing physical therapy. She also continued to have sleep issues and I reminded her she had a pending sleep medicine consult to address this. - F/U on 05/05/16. She saw sleep medicine and was diagnosed with sleep apnea. She had stopped the aricept due to dizziness. She reported the staring spells have resolved and she had forgotten to do the 24 hour EEG. I canceled the EEG and told her to f/u with me in 12 months. - F/U on 01/13/17. She reported slowly worsening short term memory and cognitive problems. She reported she has not yet been able to find an effective therapy for her sleep apnea (could not tolerate CPAP). She reported worsening problems with ADLs. I felt her dementia was progressing in the setting of untreated sleep apnea. I recommend OT therapy and also told her to continue working with her sleep doctor to find treatment for her sleep apnea. She can f/u with me in 3 months. - F/U 10/31/18. She had been working with [facility] and they had increased her Namenda XR from 21 mg qd to 28 mg qd. They had also restarted pt on aricept 10 mg qd. Pt felt well on the meds and felt her memory loss from dementia was stable. She did request a referral to a dementia expert at [facility] to inquire about any medication trials for new drugs that could treat dementia. No other complaints. Pt told to f/u as needed. - 11/06/18: Pt admitted to [facility] on 11/05/18 for brief episode of altered awareness. Similar event in the past suspicious for possible focal seizure. Pt has dementia which is a risk for seizures. Also with history of melanoma. Neurologic exam nonfocal. Episode of altered awareness suspicious for seizure vs sundowning phenomena in dementia. Will get brain MRI wwo to ensure no mets from melanoma to brain. Will also begin Keppra 500 mg bid for seizure prevention. Pt not driving but advised to follow seizure precautions until event free for 90 days. - HPI: F/U 11/07/18: No further episodes on Keppra 500 mg bid. Pts brain MRI wwo showed a solitary hemorrhagic nonenhancing area likely benign however rads report said metastasis cannot be entirely excluded. Follow-up recommended. I will order a f/u MRI wwo at outpatient f/u visit to monitor for any progression. No further inpt neurologic w/u needed so neurology will sign off. - PMHx:melanoma, dementia, FABIO, HTN, AI, retinal detachment - SHx: no tobacco FHx: daughter alive - ROS: Pt denied acute fever, total vision loss, active severe chest pain, respiratory failure, total body severe rash, total bowel/bladder incontinence, psychosis, active seizures, or active bleeding - Labs: 04/09/14- CBC wnl, CMP AST/ALT very mild elevation, TSH wnl, B12 1233 11/05/18- Na 141 - Rads: 04/10/14- Cranial MRI w/o con: mild CMVD, mild predominantly frontal brain volume loss - 04/03/15- Neuropsych testing: mild cognitive impairment, non-amnestic type, affecting multiple domains and not thought to be fully accounted for by her known mild depression - 11/06/18: Brain MRI wwo: Left parietal cortical single new punctate hemosiderin focus without associated edema or enhancement. A solitary hemorrhagic nonenhancing metastasis cannot be entirely excluded. Follow-up recommended. (I personally visualized the images on 11/07/18) - Assessment: 1. Dementia 2. Episode of transient alteration of awareness on 11/05/18: DDx is focal seizure vs sundowning phenomena in dementia 3. Melanoma - Plan: - Repeat brain MRI wwo at outpatient clinic f/u to ensure no progression of single parietal hemosiderin lesion to any hemorrhagic mets - Agree with Namenda XR 28 mg qd for dementia - Agree with Aricept 10 mg qd for dementia - Begin Keppra 500 mg bid for seizure prevention - Seizure precautions and no driving until episode free for 90 days - F/U in neurology clinic 4-6 weeks after hospital discharge, will consider repeat EEG at that time - 35 min spent with patient, majority of time spent counseling on her symptoms and treatment plan. Objective: Vital Signs Temp Pulse Resp BP Pulse Ox 36.5 C 50 L 17 131/65 H 92 11/07/18 08:00 11/07/18 08:00 11/07/18 08:00 11/07/18 08:00 11/07/18 08:00 11/06/18 11/07/18 11/08/18 05:59 05:59 05:59 Intake Total 1900 Output Total 1400 Balance 500 Allergies/Adverse Reactions: niacin Allergy (Severe, Verified 05/27/18 19:25) Syncope Sulfa (Sulfonamide Antibiotics) Allergy (Verified 02/27/14 16:10) Unknown DUST Allergy (Uncoded 02/27/14 16:10)
--- NOTE | 2018-11-07 09:36 | PDDCSUM ---
Discharge Summary Discharge Summary: Date of Admission: 11/05/2018 Date of Discharge: 11/07/2018 Consultants: neurology Studies: brain MRI, limited TTE Discharge Diagnoses: 1. Episode of unresponsiveness 2. Sinus bradycardia (chronic) 3. RADHA, resolved 4. Metastatic melanoma (lymph nodes, lungs, thighs) on immunotherapy 5. Dementia, living independently 6. HTN 7. FABIO Brief Hospital Course: 83yo F with history of malignant melanoma with metastatic disease, HTN, dementia presented from independent living facility after episode of unresponsiveness that lasted about 10 minutes. This was accompanied by a staring spell and confusion. These were concerning for a focal seizure. Neurology was consulted. A brain MRI did not show definitive evidence of metastatic disease or any seizure focus; there was a small 3mm left parietal punctate hemosiderin focus without edema or enhancement; this was new since 2017. Neurology would like repeat brain MRI and EEG in follow up as an outpatient. She was started on keppra 500mg bid. She was instructed to not drive for at least 90 days. Of note, she had an episode similar to this in 2016 and had an EEG that was normal at that time. I do not think this episode was related to a cardiac issue. Her lisinopril was stopped to avoid hypotension as her BP was low when she arrived. PT/OT had recommended SNF but the patient and daughter declined; she was set up with home health PT and OT instead. Medications: Please refer to EMR for complete list. The following changes were made: 1. Stopped lisinopril 5mg daily 2. Started keppra 500mg BID Follow Up Plan: 1. Follow up with Dr Keith Osorio (neurology) in 4-6 weeks. He wants you to have a repeat brain MRI at that time. Physical Exam: Vitals and telemetry reviewed, no significant arrhythmias. Alert and oriented, no focal neurologic deficits, rrr, lungs clear, abdomen soft, no edema.
--- NOTE | 2018-11-07 09:36 | PDIAF ---
- Diagnosis Code Status: Full Code - Medication Management Discharge Medications: electronically signed and located in the Home Medication List. PIC Care - Routine: N/A - Orders Services needed: Home Care, Registered Nurse, Certified Director Energy, Physical Therapy, Occupational Therapy Home Care Face to Face: I certify that this patient was under my care and that I had the required [id number] encounter meeting the encounter requirements on the discharge day. My findings support the fact that the patient is homebound as defined in Home Care Face to Face Continued: CMS Chapter 7 Medicare Benefits Manual 30.1.1 , The condition of the patient is such that there exists a normal inability to leave home and consequently, leaving home would require a considerable and taxing effort. Isolation Type: None Diet Recommendation: no restrictions on diet Diet Texture: Regular Texture Diet Schmitt: Not applicable Additional Instructions: Stop taking your lisinopril (blood pressure medication). Begin taking keppra 500mg twice daily. Otherwise no medication changes. Follow up with Dr Keith Osorio (neurology) in 4-6 weeks. He wants you to have a repeat brain MRI at that time. We are adding on home health care physical and occupational therapy. - Follow Up Care Current Providers and Referrals: Patient,NotPresent [Unknown] - As per Instructions
--- NOTE | 2018-11-07 09:58 | ASMTCMCOM ---
CM Note CM Note Notes: Pt medically stable for d/c with resumption of community services. HHC orders sent to [facility] in [employer], they were notified by phone too. [facility] (voicemail left for Mike) and [facility] worker Jaclyn notified of pt d/c by phone. Date Signed: 11/07/2018 09:57 AM Electronically Signed By:YOLY Longoria
--- NOTE | 2018-11-07 10:08 | ASDISCHSUM ---
Discharge Information Plan Status:Home with Home Health Medically Cleared to Leave:11/07/2018 Discharge Date:11/07/2018 CM D/C Disposition: ADT D/C Disposition:[id number] Projected Discharge Date:11/07/2018 11:00 AM Transportation at D/C: Discharge Delay Reason: Follow-Up Date:11/07/2018 11:00 AM Discharge Slot: Final Diagnosis: Placement Information Referral Type:*Home Health Care Services Referral ID:[id number] Provider Name:[facility] Address 1:[address] Phone Number: Address 2: Fax Number: City:[place] Selection Factors: State:[place] Patient Contact Information Contact Name:IRENEPEARL Relationship:Daughter Address: City:[place] Phone: State/[facility] Code:[place] [address] Email: Financial Information Financial Class:Medicare Primary Plan Desc:MEDICARE INPATIENT Primary Plan Number:[id number] Secondary Plan Desc:[place] Secondary Plan Number:[id number] Assessment Information LACE LACE Length of stay for Answers: 2 days current admission Acuity / Level of Answers: Yes Care: Did the patient have an inpatient admission? Comorbidities - select Answers: Any tumor (including all that apply lymphoma or leukemia) Dementia Opioid dependence / Chronic pain Other Notes: HLD # of Emergency department Answers: 1-2 visits in the last 6 months Social determinants Answers: History of substance abuse (ETOH, street drugs, prescription drugs, etc.) Score: 19 Date Signed: 11/07/2018 10:07 AM Electronically Signed By:ALHAJI Mckeon [facility] CM Progress Note CM Note CM Note Notes: Pts case discussed w/ Dr. Maravilla. Pt is a 83 y/o female admitted for a syncopal episode. CM spoke to pts daughter Irene (P#: [phone] or [phone]) on the phone. Irene reports that pt is currently getting HCBS services. Pts [facility] transplant case manager is Jaclyn Boyce (P#: [phone]). CM left Jaclyn a msg. Pt is current w/ [facility] (P#: [phone]) for her caregivers. CM left a msg for Shody at [facility]. Pt is current w/ [facility] for RN and [employer] services (P#: [phone]). Pts PCP is Lola Stoddard. CM had admissions add it into pts demographics. [facility] to [facility]. CM to follow. Plan: [facility]; caregivers, [facility]; RN, [employer] and has [facility] transplant case manager Date Signed: 11/06/2018 03:19 PM Electronically Signed By:ALHAJI Mckeon [facility] Progress Note CM Note CM Note Notes: Pt medically stable for d/c with resumption of community services. HHC orders sent to [facility] in [employer], they were notified by phone too. [facility] (voicemail left for Anupamawilberto) and [facility] worker Jaclyn notified of pt d/c by phone. Date Signed: 11/07/2018 09:57 AM Electronically Signed By:YOLY Longoria Intervention Information Intervention Type:*HOBSON-Signed Date of Service:11/06/2018 11:02 AM Patient Type:Observation Staff Member:Arminda Richards Hours: Discipline: Severity: Comment:
[2018-11-07 11:41] VITALS: BP 130/68
== END 2018-11-07 14:40 | disposition home health service (06) | DRG 101 ==
LOC: EDUNIT# → F2W 10:26 → OBSVTOIN 11-06 12:35
PROVIDERS: ADMIT Internal Medicine; ATTEND Internal Medicine
DX: G40.89 Other seizures (principal); N17.9 Acute kidney failure, unspecified; C79.89 Secondary malignant neoplasm of other specified sites; C78.00 Secondary malignant neoplasm of unspecified lung; C43.9 Malignant melanoma of skin, unspecified; R00.1 Bradycardia, unspecified; I44.0 Atrioventricular block, first degree; G30.9 Alzheimer's disease, unspecified; F02.80 Dementia in other diseases classified elsewhere, unspecified severity, without behavioral disturbance, psychotic disturbance, mood disturbance, and anxiety; E86.9 Volume depletion, unspecified; I10 Essential (primary) hypertension; G47.33 Obstructive sleep apnea (adult) (pediatric); M79.7 Fibromyalgia; F32.9 Major depressive disorder, single episode, unspecified; R26.9 Unspecified abnormalities of gait and mobility
CPT/HCPCS: 84484-ER; 97161-GP; 97166-GO; 97535-GO; A9585; G0378; G0515-GO

== ENCOUNTER → 2019-01-15 | Outpatient (CLI) | payer OTHER, MEDICAID | LOC: FIMAGING 15:43 ==